=== PATIENT | male | born 1940 | race Caucasian/White ===

== ENCOUNTER → 2017-08-23 | Outpatient (CLI) | payer MEDICARE, BC | END | disposition home or self-care (01) | LOC: LABPAT 10:53 | PROVIDERS: ATTEND Orthopaedic Surgery | DX: Z01.812 Encounter for preprocedural laboratory examination (principal) | CPT/HCPCS: 87070 ==

== ENCOUNTER 2018-03-03 08:06 | Inpatient (IN) | payer MEDICARE, BC ==
--- NOTE | 2018-03-02 12:25 | HP ---
HISTORY AND PHYSICAL Surgery is scheduled for 03/03/2018. Martin Cornejo is a 77-year-old patient seen with progressive right knee pain. Treatment options were discussed with him. He elected to proceed with right total knee arthroplasty. Consent regarding procedure was obtained. Medical clearance was provided by Dr. Varela. PAST MEDICAL HISTORY: Hypertension, gastroesophageal reflux disease, depression. PAST SURGICAL HISTORY: Left total knee arthroplasty. DAILY MEDICATIONS: Amlodipine, hydralazine, hydrochlorothiazide, metoprolol, Paxil, Prilosec. ALLERGIES: None reported. SOCIAL HISTORY: Patient denies current tobacco use. PHYSICAL EXAMINATION: Evaluation of the right knee: His range of motion is -3 to 115 degrees. There is tenderness along the medial joint line. There is crepitance along the medial lateral and patellofemoral compartments with range of motion. There is pain with patellofemoral compression. Ligaments are stable. Hip rotation is without pain. Distal neurovascular exam is intact. RADIOGRAPHS: Radiographs of the right knee reveal severe medial and moderate patellofemoral compartment osteoarthritis. IMPRESSION: 1. Right knee osteoarthritis. 2. Hypertension. 3. Gastroesophageal reflux disease. 4. Depression. PLAN: Right total knee arthroplasty. MMODL / IJN: [id number] /
[~2018-03-03 08:06] MED LIST: ACETAMINOPHEN TAB 500 MG TAB PO ONE; DEXAMETHASONE SOD PHOSPHATE 10 MG/ML 1 ML VIAL IV ONE; MELOXICAM 7.5 MG TAB PO ONE; MIDAZOLAM 2 MG/2 ML VIAL IV PRN; MORPHINE SULFATE 4 MG/0.8 ML SYRINGE (INJ) IV PRN; ONDANSETRON ODT 4 MG TAB PO ONE; TRANEXAMIC ACID 1,000 MG in SODIUM CHLORIDE 0.9% 50 ML IVPB ONE
[2018-03-03] MEDS ORDERED: ONDANSETRON 4 MG/2 ML VIAL ONE (08:25)
[2018-03-03] MEDS: LACTATED RINGERS 1,000 ML IV SCH (08:44)
[2018-03-03] MEDS ORDERED: ONDANSETRON 4 MG/2 ML VIAL IVP ONE (08:45)
[2018-03-03] MEDS ORDERED: fentaNYL (PF) 50 MCG/ML 2 ML AMP ONE (08:50)
[2018-03-03] MEDS ORDERED: ROPIVACAINE 1,100 MG, SODIUM CHLORIDE 0.9% 330 ML MISCELLANE PRN ×2 (09:37)
--- NOTE | 2018-03-03 09:37 | P.ONQ ---
Anesthesiology Proc Note - PNB - Peripheral Nerve Block Performed Right Adductor Canal Infusion Time Out Performed: Yes Procedure Start Time: : Procedure Stop Time: : Indication: Acute Post-Operative Pain, Requested by physician Sedation Type: Sedate with meaningful contact maintained Position: Supine Catheter: Indwelling Needle Types: On-Q Needle Size: 150mm (6") Needle Gauge: 20 Technique: Ultrasound Injectate: 0.5% Ropivacaine (see comment for volume) (30 mls) Blood Aspirated: No Pain Paresthesia on Injection Noted: No Resistance on Injection: Normal Events: Uneventful and Well Tolerated
[2018-03-03] MEDS ORDERED: PROPOFOL 10 MG/ML 20 ML VIAL IV ONE (10:07)
[2018-03-03] MEDS ORDERED: TRANEXAMIC ACID 1,000 MG/10 ML VIAL ONE (10:07)
[2018-03-03] MEDS ORDERED: SODIUM CHLORIDE 0.9% 100 ML BAG ONE (10:07)
[2018-03-03] MEDS ORDERED: MIDAZOLAM 2 MG/2 ML VIAL ONE (10:07)
[2018-03-03] MEDS ORDERED: ceFAZolin 3,000 MG in SODIUM CHLORIDE 0.9% IRRIGATIO 3,000 ML IRRIGATION ONE (10:12)
[2018-03-03] MEDS: ceFAZolin IN SWFI 2 GM/20 ML SYRINGE IVP ONE ×2 (10:19→10:30)
[2018-03-03] MEDS ORDERED: ROPIVACAINE 246.25 MG, EPINEPHrine 0.5 MG, KETOROLAC 30 MG, cloNIDine HCL/PF 80 MCG, WA... MISCELLANE ONE ×5 (10:23)
[2018-03-03] MEDS ORDERED: LACTATED RINGERS 1,000 ML IV ONE (11:07)
[2018-03-03] MEDS ORDERED: hydrOXYzine PAMOATE 25 MG CAP PO PRN (12:36)
[2018-03-03] MEDS ORDERED: HYDROcodone/APAP 7.5-325MG 1 EACH TAB PO PRN ×2 (12:36)
[2018-03-03] MEDS ORDERED: MORPHINE SULFATE 4 MG/ML SYRINGE IVP PRN ×3 (12:36)
[2018-03-03] MEDS ORDERED: NALOXONE 0.4 MG/ML 1 ML VIAL IV PRN (12:36)
[2018-03-03] MEDS ORDERED: ONDANSETRON 4 MG/2 ML VIAL IVP PRN (12:36)
--- NOTE | 2018-03-03 12:36 | P.OP ---
Date of Procedure: 03/03/18 Preoperative Diagnosis: Right knee osteoarthritis Postoperative Diagnosis: Right knee osteoarthritis Procedure(s) Performed: Right total knee arthroplasty Implants: 1. Celina persona size 9 right cruciate retaining cemented femur 2. Celina persona size G right cemented tibial tray 3. Celina persona 18 mm medial congruent polyethylene tibial insert 4. Celina persona 41 mm all polyethylene cemented patella Anesthesia: regional (Abductor canal block), local, spinal Surgeon: Deonte Rich Estimated Blood Loss (ml): 80 Pathology: other (Bone) Condition: stable Disposition: PACU Indications for Procedure: 77-year-old patient seen with symptomatic right knee osteoarthritis. After treatment options were discussed, he elected to proceed with total knee arthroplasty. Operative Findings: See description of procedure Description of Procedure: Patient was taken to the operative suite after having an adductor canal catheter placed by the department of anesthesia. Patient underwent a spinal anesthetic by the department of anesthesia. Patient was given preoperative IV intake antibiotics and TXA. A well-padded tourniquet was placed about the [] lower extremity. The lower extremity was then prepped and draped in the normal sterile orthopedic fashion. The extremity was elevated, a tourniquet was insufflated to 350. A standard anterior incision was made sharply through skin. Dissection was taken down through the subcutaneous soft tissues down to the extensor mechanism. A medial arthrotomy was performed, patella was everted and knee was flexed. There was advanced osteoarthritis noted. A proximal tibial cutting guide was positioned. Proximal tibial cut was made. A distal intramedullary femoral cutting guide was positioned, distal femoral cut made. We placed the appropriate sizing guide and selected the appropriate size. A distal 4-in-1 femoral cutting block was positioned, distal femoral cuts were made. We now placed a trial femoral component into position, along with an appropriate size tibial tray and insert. We now took the knee through range of motion and had full extension good flexion and good overall soft tissue balance noted. The patella was everted and a flush cut made with patellar quad tendon. We templated the patella, appropriate drill holes were made. An appropriate trial patella was positioned, knee was taken through full range of motion with the patella tracking very nicely. The trial patella was removed. Drill holes were made through the femoral component. All trial components were removed after marking off the appropriate rotation of the tibia. Retractors were now positioned along the proximal tibia. An appropriate keel punch was made with the appropriate size tibial guide. At this point appropriate size implants were chosen and opened. The joint was irrigated copiously with pulse lavage mechanical irrigation. The posterior capsule was infiltrated with local analgesic. We mixed antibiotic methylmethacrylate. Once the methyl methacrylate was ready, the tibial component was cemented into place removing any excess methylmethacrylate. The femoral component was cemented into place removing the removing any excess methylmethacrylate. We then inserted the appropriate size polyethylene tibial insert. We made sure that it was locked into position. We took the knee into full extension, and then back in a flexion making sure we had removed any excess methylmethacrylate. The patellar component was then cemented down and secured with clamp. Excess methylmethacrylate removed. We kept the knee in full extension, patellar clamp in position until methylmethacrylate had hardened. Once it had hardened the patellar clamp was removed. The knee was taken through full range of motion. The patella tracked nicely. There was good soft tissue balancing. The tourniquet was now released. Additional hemostasis was achieved via electrocautery. A second gram of TXA was given. The wound was irrigated with pulse lavage mechanical irrigation. The superficial soft tissues were infiltrated local analgesic. The extensor mechanism was repaired with Vicryl. We checked the repair with range of motion and it was stable. The subcutaneous soft tissues were repaired with Vicryl in layers. The skin was approximated with pernio/Dermabond. Sterile dressings were applied followed by loose web roll and [place] bandage. The patient was transferred to a bed, and taken to recovery in stable and satisfactory condition.
--- NOTE | 2018-03-03 12:58 | XR ---
EXAMINATION TYPE: XR knee limited RT DATE OF EXAM: 03/03/2018 CLINICAL HISTORY: Right knee pain and arthritis status post total knee replacement. TECHNIQUE: Portable AP and crosstable lateral views of the right knee are obtained immediately posto peratively. COMPARISON: None FINDINGS: Metallic hardware from total right knee arthroplasty is seen and appears satisfactory in a lignment and position. There is evidence of recent surgery with diffuse subcutaneous gas , vertical skin rosaline, and percutaneous suprapatellar surgical drain noted. IMPRESSION: METALLIC HARDWARE FROM TOTAL RIGHT KNEE ARTHROPLASTY IS SATISFACTORY IN ALIGNMENT.
[2018-03-03] MEDS: traMADol 50 MG TAB PO SCH ×3 (13:46→20:39)
[2018-03-03] MEDS: SODIUM CHLORIDE 0.9% 1,000 ML IV SCH (18:26)
[2018-03-03] MEDS: ceFAZolin IN SWFI 2 GM/20 ML SYRINGE IVP SCH (18:26)
[2018-03-03] MEDS: ENOXAPARIN 30 MG/0.3 ML SYRINGE SQ SCH (20:41)
[2018-03-03] MEDS ORDERED: SENNOSIDES-DOCUSATE SODIUM 1 EACH TAB PO SCH (21:00)
[2018-03-04] MEDS: ceFAZolin IN SWFI 2 GM/20 ML SYRINGE IVP SCH (01:00)
[2018-03-04 01:57] VITALS: RESP 14
[2018-03-04] MEDS: ENOXAPARIN 30 MG/0.3 ML SYRINGE SQ SCH (07:03)
[2018-03-04] MEDS: traMADol 50 MG TAB PO SCH ×2 (07:05→12:33)
[2018-03-04 07:08] VITALS: BP 136/76; PULSE 59; TEMP 98
[2018-03-04] MEDS: LACTATED RINGERS 1,000 ML IV SCH (07:31)
[2018-03-04 07:33] LABS: Basophils % (A) 0 %; Eosinophils # (A) 0.1 k/uL (0-0.7); Eosinophils % (A) 0 %; HCT 39.1 % (39.0-53.0); HGB 12.8 gm/dL (13.0-17.5); Lymphocytes # (A) 2.6 k/uL (1.0-4.8); Lymphocytes % (A) 14 %; MCH 29.3 pg (25.0-35.0); MCHC 32.8 g/dL (31.0-37.0); MCV 89.3 fL (80.0-100.0); Mean Platelet Volume 7.4; Monocytes # (A) 1.3 k/uL (0-1.0); Monocytes % (A) 7 %; Neutrophils # (A) 14.5 k/uL (1.3-7.7); Neutrophils % (A) 77 %; Platelet Count 233 k/uL (150-450); RBC 4.37 m/uL (4.30-5.90); RDW 14.3 % (11.5-15.5); WBC 18.7 k/uL (3.8-10.6)
[2018-03-04] MEDS ORDERED: PANTOPRAZOLE 40 MG TABLET PO SCH (07:45)
[2018-03-04] MEDS ORDERED: FAMOTIDINE 20 MG TAB PO SCH (09:00)
[2018-03-04] MEDS ORDERED: MELOXICAM 7.5 MG TAB PO SCH (09:00)
[2018-03-04] MEDS ORDERED: METOPROLOL SUCCINATE (ER) 100 MG TAB.ER.24H PO SCH (09:00)
[2018-03-04] MEDS ORDERED: PARoxetine 20 MG TAB PO SCH (09:00)
[2018-03-04] MEDS ORDERED: amLODIPine 5 MG TAB PO SCH (09:00)
[2018-03-04] MEDS ORDERED: hydrALAZINE HCL 25 MG TAB PO SCH (09:00)
[2018-03-04] MEDS: SODIUM CHLORIDE 0.9% 1,000 ML IV SCH (09:57)
--- NOTE | 2018-03-04 11:12 | P.PN ---
Subjective Progress Note Date: 03/04/18 Principal diagnosis: Status post right total knee arthroplasty Patient seen today resting in his hospital bed, he is utilizing the CPM. His pain is well-controlled. He is ambulating well with physical therapy. He denies any headaches, lightheadedness, chest pain or shortness of breath. Objective - Vital Signs Vital signs: Vital Signs Temp 98.0 F 03/04/18 07:07 Pulse 59 L 03/04/18 07:07 Resp 14 03/04/18 01:54 BP 136/76 03/04/18 07:07 Pulse Ox 98 03/04/18 07:07 Intake & Output 03/03/18 03/04/18 03/04/18 18:59 06:59 18:59 Intake Total 1351 525 240 Output Total 80 Balance 1271 525 240 Intake: IV 1351 525 Sodium Chloride 0.9% 1, 250 525 000 ml @ 50 mls/hr IV . Q20H ANGY Rx#:[id number] Oral 240 Output: Estimated Blood Loss 80 Other: Voiding Method Toilet Toilet # Voids 1 - Exam Right lower extremity: Incision is clean, dry, and intact. The prineo tape is in good condition. There is minimal soft tissue swelling and ecchymosis surrounding the medial and lateral aspects of the incision. Calf is soft, no tenderness with palpation. Plantar flexion, dorsiflexion, EHL, FHL are intact. Sensory exam to light touch throughout the extremity is intact, dorsal pedis pulses 2+. - Labs CBC & Chem 7: 03/04/18 07:07 Labs: Abnormal Lab Results - Last 24 Hours (Table) 03/04/18 Range/Units 07:07 WBC 18.7 H (3.8-10.6) k/uL Hgb 12.8 L (13.0-17.5) gm/dL Neutrophils # 14.5 H (1.3-7.7) k/uL Monocytes # 1.3 H (0-1.0) k/uL Assessment and Plan Plan: Assessment: 1. Postop day #1 status post right total knee arthroplasty Plan: 1. Pain control, continue use of oral medication 2. GI and DVT prophylaxis, continue Lovenox during inpatient stay. He will be discharged home on aspirin 325 mg twice a day 3. Wound care instructions were discussed 4. Continue use of CPM and physical therapy 5. Medical recommendations 6. Discharge planning: Patient likely be discharged home today Time with Patient: Less than 30
[2018-03-04] MEDS ORDERED: MULTIVITAMINS, THERA 1 EACH TAB PO SCH (12:00)
--- NOTE | 2018-03-04 13:51 | P.DS ---
Providers Date of admission: 03/03/18 08:06 Expected date of discharge: 03/04/18 Attending physician: Deonte Rich Consults: 03/03/18 12:36 Consult Physician Routine Consulting Provider: Remigio Varela Consult Reason/Comments: Medical management Do you want consulting provider notified?: Yes Primary care physician: Remigio Varela Hospital Course: Date of admission: 03/03/2018 Date of discharge: 03/04/2018 Admission diagnosis: Status post right total knee arthroplasty Discharge diagnosis: Same Attending physician: Dr. Rich Surgical procedures: Right total knee arthroplasty Brief history: Patient is a 77-year-old male with a history of progressive primary right knee osteoarthritis. At this point patient has failed conservative treatment measures and has opted to proceed with a elective right total knee arthroplasty. Hospital course: Details of patient's surgery can be found in operative report. Patient tolerated the procedure well and was subsequently transported to orthopedic floor. Patient's orthopeidc and medical care was provided daily. Patient had daily laboratory tests performed for evaluation of overall blood counts. Patient had daily physical therapy to include strengthening range of motion as well as education with walker ambulation. Patient had daily CPM usage as part of their physical therapy program. Patient was treated with Lovenox for their postoperative DVT prophylaxis during their inpatient stay. Patient was noted to have a relatively uneventful postoperative course. Patient reported satisfactory pain control with oral pain medications by postoperative day 0. Patient showed satisfactory progress with physical therapy. Patient moved steadily through the program and had no difficulty meeting the goals by postoperative day 1 . Given patient's otherwise satisfactory course and having met physical therapy goals, plan is to discharge patient home on postoperative day 1 . Discharge condition/disposition: Patient will be discharged home in stable condition. Discharge medications: Instructions are given on resumption of patient's normal daily medications per primary care recommendation, in addition patient will be prescribed Colace 100 mg, aspirin 325 mg. Discharge instructions: 1. Wound care and infection precautions, keep incision dry and covered while showering, no lotions, creams, moisturizers. No soaking, tubs, pools, hottubs. Do not scrub over the incision. 2. Weight-bear as tolerated with walker / cane until follow-up. 3. Ice and elevate when necessary. Do not exceed 20 minutes per hour with ice pack. 4. Utilize compression sleeve until seen at first follow up appointment. 5. Visiting nursing care. 6. Home physical therapy including home CPM. 7. Pain meds and anticoagulants per prescription. 8. Pain medication has potential to cause constipation. Increase oral fluid and fiber intake. Contact primary care provider if you have not had a bowel movement within 48 hours after discharge 9. No anti-inflammatory medication until discussed at first post operative visit, this including Motrin, Aleve, Mobic, Diclofenac. 10. Follow up in office at 2 weeks postop with Manuel Goldman PA-C 11. Follow up with your primary care doctor 7-10 days after discharge. 12. Contact [facility] with any questions, . Procedures: Right total knee arthroplasty Patient Condition at Discharge: Good Plan - Discharge Summary Discharge Rx Participant: Yes New Discharge Prescriptions: New Aspirin 325 mg PO BID #60 tab Docusate [Colace] 100 mg PO DAILY #30 capsule Discontinued Aspirin 325 mg PO BID #60 tab No Action amLODIPine [Norvasc] 5 mg PO QAM PARoxetine [Paxil] 20 mg PO BID Metoprolol Succinate (ER) [Toprol Xl] 100 mg PO BID hydrALAZINE HCL [Apresoline] 25 mg PO BID Omeprazole 20 mg PO QAM traMADol HCl [Ultram] 50 mg PO Q6H PRN #40 tab PRN Reason: Pain Multivitamins, Thera [Multivitamin (formulary)] 1 tab PO DAILY Discharge Medication List Metoprolol Succinate (ER) [Toprol Xl] 100 mg PO BID 10/03/17 [History] Omeprazole 20 mg PO QAM 10/03/17 [History] PARoxetine [Paxil] 20 mg PO BID 10/03/17 [History] amLODIPine [Norvasc] 5 mg PO QAM 10/03/17 [History] hydrALAZINE HCL [Apresoline] 25 mg PO BID 10/03/17 [History] traMADol HCl [Ultram] 50 mg PO Q6H PRN #40 tab 10/08/17 [Rx] Multivitamins, Thera [Multivitamin (formulary)] 1 tab PO DAILY 02/26/18 [History ] Aspirin 325 mg PO BID #60 tab 03/04/18 [Rx] Docusate [Colace] 100 mg PO DAILY #30 capsule 03/04/18 [Rx] Follow up Appointment(s)/Referral(s): Remigio Varela MD [Primary Care Provider] - 1 Week [facility], [NON-STAFF] - Jeronimo Goldman PAC [PHYSICIAN [employer]CH[employer]] - 2 Weeks Patient Instructions/Handouts: *Surgery [facility] - On-Q Pain Pump Discharge Instructions, Knee Replacement (DC) Activity/Diet/Wound Care/Special Instructions: Orthopedic Discharge Instructions: 1. Wound care and infection precautions, keep incision dry and covered while showering, no lotions, creams, moisturizers. No soaking, pools, hot tubs. Do not scrub over incision. 2. Weight-bear as tolerated with walker / cane until follow-up. 3. Ice and elevate when necessary. Do not exceed 20 minutes per hour with ice pack. 4. Utilize compression sleeve until seen at first follow up appointment. 5. Visiting nursing care. 6. Home physical therapy including home CPM. 7. Pain meds and anticoagulants per prescription. 8. Pain medication has potential to cause constipation. Increase oral fluid and fiber intake. Contact primary care provider if you have not had a bowel movement within 48 hours after discharge. 9. No anti-inflammatory medication until discussed at first post operative visit, this including Motrin, Aleve, Mobic, Diclofenac. 10. Follow up in office at 2 weeks postop with Manuel Goldman PA-C 11. Follow up with your primary care doctor 7-10 days after discharge. 12. Contact [facility] with any questions, . Discharge Disposition: HOME WITH HOME HEALTH SERVICES
== END 2018-03-04 15:49 | disposition home health service (06) | DRG 470 ==
LOC: 2ORMAIN 08:06 → 3SUR 12:28
PROVIDERS: ADMIT Orthopaedic Surgery; ATTEND Orthopaedic Surgery
PROC: 0SRC0J9 Replacement of Right Knee Joint with Synthetic Substitute, Cemented, Open Approach (ICD-10-PCS; principal; 2018-03-03 10:15)
DX: M17.11 Unilateral primary osteoarthritis, right knee (principal); F32.9 Major depressive disorder, single episode, unspecified; I10 Essential (primary) hypertension; K21.9 Gastro-esophageal reflux disease without esophagitis; Z96.652 Presence of left artificial knee joint; Z79.82 Long term (current) use of aspirin; Z79.899 Other long term (current) drug therapy
CPT/HCPCS: 85025; 88300

== ENCOUNTER 2020-01-01 10:43 | Emergency (ER) | payer MEDICARE, BC ==
[2020-01-01 10:51] VITALS: RESP 18; TEMP 99.1
[2020-01-01] MEDS ORDERED: SODIUM CHLORIDE 0.9% 1,000 ML IV STA (11:25)
--- NOTE | 2020-01-01 11:30 | ED ---
General Adult HPI - General Chief complaint: Syncope Stated complaint: Near syncope Time Seen by Provider: 01/01/20 10:57 Source: patient Mode of arrival: ambulatory Limitations: no limitations - History of Present Illness Initial comments: Dictation was produced using [employer] dictation software. please excuse any grammatical, word or spelling errors. Chief Complaint: 79-year-old male past medical history of hypertension and depression and anxiety presents with presyncope History of Present Illness: Is a 79-year-old male. He states that approximately 2 hours prior to arrival he stood up abruptly to go to the restroom. On his way to the bathroom he felt a little lightheaded. States that he saw stars. Patient states that he had to hold himself up on the wall. Patient states his symptoms resolved after several seconds. He was able to go to the bathroom and use it. Patient states he had an episode like this actually 1 year ago. Patient has history of hypertension. Takes multiple antihypertensive medications. Patient feels well at this time. States he feels mildly anxious but he has a history of anxiety. The ROS documented in this emergency department record has been reviewed and confirmed by me. Those systems with pertinent positive or negative responses have been documented in the HPI. All other systems are other negative and/or noncontributory. PHYSICAL EXAM: General Impression: Alert and oriented x3, not in acute distress HEENT: Normocephalic atraumatic, extra-ocular movements intact, pupils equal and reactive to light bilaterally, mucous membranes moist. Cardiovascular: Heart regular rate and rhythm, S1&S2 audible, no murmurs, rubs or gallops Chest: Lungs clear to auscultation bilaterally, no rhonchi, no wheeze, no rales Abdomen: Bowel sounds present, abdomen soft, non-tender, non-distended, no organomegaly Musculoskeletal: Pulses present and equal in all extremities, no peripheral edema Motor: no focal deficits noted Neurological: CN II-XII grossly intact, no focal motor or sensory deficits noted Skin: Intact with no visualized rashes Psych: Normal affect and mood ED course: 79 y Old male presents with clinical presentation consistent with presyncope as upon arrival are within acceptable limits. EKGs benign. His physical exam is normal Laboratory evaluation obtained. CBC metabolic panel is unremarkable. Orthostatic blood pressures are negative. Patient was in the emergency Department with no changes in status. He appears well on once to be discharge. Patient told to follow-up with his primary care physician. Return parameters discussed. EKG interpretation: Ventricular rate 68, normal sinus rhythm,. Interval 160, QRS 92, QTC 421. No PA prolongation, no QTC prolongation, no ST or T-wave changes noted. Overall, this EKG is unremarkable - Related Data Home Medications Medication Instructions Recorded Confirmed Metoprolol Succinate (ER) [Toprol 100 mg PO BID 10/03/17 03/03/18 Xl] Omeprazole 20 mg PO QAM 10/03/17 03/03/18 PARoxetine [Paxil] 20 mg PO BID 10/03/17 03/03/18 amLODIPine [Norvasc] 5 mg PO QAM 10/03/17 03/03/18 hydrALAZINE HCL [Apresoline] 25 mg PO BID 10/03/17 03/03/18 Multivitamins, Thera [Multivitamin 1 tab PO DAILY 02/26/18 03/03/18 (formulary)] Previous Rx's Medication Instructions Recorded traMADol HCl [Ultram] 50 mg PO Q6H PRN #40 tab 10/08/17 Aspirin 325 mg PO BID #60 tab 03/04/18 Docusate [Colace] 100 mg PO DAILY #30 capsule 03/04/18 Allergies Allergy/AdvReac Type Severity Reaction Status Date / Time No Known Allergies Allergy Verified 01/01/20 10:51 Review of Systems ROS Statement: Those systems with pertinent positive or pertinent negative responses have been documented in the HPI. ROS Other: All systems not noted in ROS Statement are negative. 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, 4th finger tip amputated, jesus cataract sx, Past Anesthesia/Blood Transfusion Reactions: No Reported Reaction Past Psychological History: Anxiety Smoking Status: Former smoker Past Alcohol Use History: Occasional Past Drug Use History: None Reported - Past Family History Father Family Medical History: Cancer Additional Family Medical History / Comment(s): esophagus General Exam Limitations: no limitations Course Vital Signs 01/01/20 01/01/20 01/01/20 10:47 11:34 11:43 Temperature 99.1 F Pulse Rate 69 67 Pulse Rate [ 70 Left Standing Range Manager ] Respiratory 18 18 Rate Blood Pressure 162/93 162/93 Blood Pressure 152/90 [Left Arm Standing] O2 Sat by Pulse 98 96 Oximetry 01/01/20 11:59 Temperature Pulse Rate 64 Pulse Rate [ Left Standing Range Manager ] Respiratory 18 Rate Blood Pressure 146/85 Blood Pressure [Left Arm Standing] O2 Sat by Pulse 96 Oximetry Medical Decision Making - Lab Data Result diagrams: 01/01/20 11:50 01/01/20 10:55 Lab Results 01/01/20 01/01/20 Range/Units 10:55 11:50 WBC 5.5 (3.8-10.6) k/uL RBC 4.85 (4.30-5.90) m/uL Hgb 15.0 (13.0-17.5) gm/dL Hct 44.9 (39.0-53.0) % MCV 92.5 (80.0-100.0) fL MCH 30.9 (25.0-35.0) pg MCHC 33.5 (31.0-37.0) g/dL RDW 13.5 (11.5-15.5) % Plt Count 215 (150-450) k/uL Neutrophils % 49 % Lymphocytes % 33 % Monocytes % 9 % Eosinophils % 6 % Basophils % 1 % Neutrophils # 2.7 (1.3-7.7) k/uL Lymphocytes # 1.8 (1.0-4.8) k/uL Monocytes # 0.5 (0-1.0) k/uL Eosinophils # 0.3 (0-0.7) k/uL Basophils # 0.0 (0-0.2) k/uL Sodium 136 L (137-145) mmol/L Potassium 5.1 (3.5-5.1) mmol/L Chloride 101 (98-107) mmol/L Carbon Dioxide 26 (22-30) mmol/L Anion Gap 9 mmol/L BUN 17 (9-20) mg/dL Creatinine 0.93 (0.66-1.25) mg/dL Est GFR (CKD-EPI)AfAm >90 (>60 ml/min/1.73 sqM) Est GFR (CKD-EPI)NonAf 79 (>60 ml/min/1.73 sqM) Glucose 109 H (74-99) mg/dL Calcium 9.0 (8.4-10.2) mg/dL Magnesium 2.0 (1.6-2.3) mg/dL Disposition Clinical Impression: Dizziness Disposition: HOME SELF-CARE Condition: Good Instructions (If sedation given, give patient instructions): Near Syncope (ED) Is patient prescribed a controlled substance at d/c from ED?: No Referrals: Remigio Varela MD [Primary Care Provider] - 1-2 days Time of Disposition: 12:28
[2020-01-01 11:58] LABS: Basophils % (A) 1 %; Eosinophils # (A) 0.3 k/uL (0-0.7); Eosinophils % (A) 6 %; HCT 44.9 % (39.0-53.0); Lymphocytes # (A) 1.8 k/uL (1.0-4.8); Lymphocytes % (A) 33 %; MCH 30.9 pg (25.0-35.0); MCHC 33.5 g/dL (31.0-37.0); MCV 92.5 fL (80.0-100.0); Mean Platelet Volume 7.8; Monocytes # (A) 0.5 k/uL (0-1.0); Monocytes % (A) 9 %; Neutrophils # (A) 2.7 k/uL (1.3-7.7); Neutrophils % (A) 49 %; Platelet Count 215 k/uL (150-450); RBC 4.85 m/uL (4.30-5.90); RDW 13.5 % (11.5-15.5); WBC 5.5 k/uL (3.8-10.6)
[2020-01-01 11:58] LABS: African American GFR (CKD) >90 (>60 ml/min/1.73 sqM); Anion Gap 9 mmol/L; Blood Urea Nitrogen 17 mg/dL (9-20); Carbon Dioxide 26 mmol/L (22-30); Chloride 101 mmol/L (98-107); Glucose 109 mg/dL (74-99); Non-African American GFR(CKD) 79 (>60 ml/min/1.73 sqM); Potassium 5.1 mmol/L (3.5-5.1); Sodium 136 mmol/L (137-145)
[2020-01-01 12:00] VITALS: BP 146/85; PULSE 64
[2020-01-01] MEDS ORDERED: KETOROLAC 30 MG/ML 1 ML VIAL IVP STA (12:27)
== END 2020-01-01 13:00 | disposition home or self-care (01) ==
LOC: EC 10:43
DX: R42 Dizziness and giddiness (principal); I10 Essential (primary) hypertension; F41.9 Anxiety disorder, unspecified; Z87.891 Personal history of nicotine dependence; Z79.899 Other long term (current) drug therapy
CPT/HCPCS: 36415; 93005; 80048; 83735; 85025; 99284; 96374; 96361; J1885

== ENCOUNTER 2021-11-04 10:15 | Inpatient (IN) | payer MEDICARE, BC ==
[2021-11-04] MEDS ORDERED: SODIUM CHLORIDE 0.9% 1,000 ML IV STA (11:01)
--- NOTE | 2021-11-04 11:06 | ED ---
SOB HPI - General Chief Complaint: Shortness of Breath Stated Complaint: SOB,Cough,Body Aches Time Seen by Provider: 11/04/21 10:42 Source: patient, RN notes reviewed Mode of arrival: ambulatory Limitations: no limitations - History of Present Illness Initial Comments: This is a 81-year-old male with no prior history of heart or lung disease who states he had the onset day of breath body aches slight cough this is after exposure somewhat COVID-19 the prior evening. No chest pain reported decreased appetite reported he has exertional dyspnea but at rest he feels okay with respect to breathing. Modifying factors at this time MD Complaint: shortness of breath, cough - Related Data Home Medications Medication Instructions Recorded Confirmed Metoprolol Succinate (ER) [Toprol 100 mg PO BID 10/03/17 11/04/21 Xl] Omeprazole 20 mg PO DAILY 10/03/17 11/04/21 PARoxetine [Paxil] 20 mg PO BID 10/03/17 11/04/21 hydrALAZINE HCL [Apresoline] 25 mg PO BID 10/03/17 11/04/21 Aspirin EC [Ecotrin Low Dose] 81 mg PO DAILY 11/04/21 11/04/21 Cetirizine HCl [Zyrtec] 10 mg PO DAILY 11/04/21 11/04/21 Flaxseed Oil 1,000 mg PO DAILY 11/04/21 11/04/21 Levothyroxine Sodium [Synthroid] 25 mcg PO DAILY 11/04/21 11/04/21 Tamsulosin [Flomax] 0.4 mg PO HS 11/04/21 11/04/21 Allergies Allergy/AdvReac Type Severity Reaction Status Date / Time No Known Allergies Allergy Verified 11/04/21 11:50 Review of Systems ROS Statement: Those systems with pertinent positive or pertinent negative responses have been documented in the HPI. ROS Other: All systems not noted in ROS Statement are negative. 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, 4th finger tip amputated, jesus cataract sx, Past Anesthesia/Blood Transfusion Reactions: No Reported Reaction Past Psychological History: Anxiety Smoking Status: Never smoker Past Alcohol Use History: Occasional Past Drug Use History: None Reported - Past Family History Father Family Medical History: Cancer Additional Family Medical History / Comment(s): esophagus General Exam - General Exam Comments Initial Comments: This is a well-developed well-nourished awake alert oriented 3 male Limitations: no limitations General appearance: alert, in no apparent distress Head exam: Present: atraumatic, normocephalic, normal inspection Eye exam: Present: normal appearance, PERRL, EOMI. Absent: scleral icterus, conjunctival injection, periorbital swelling ENT exam: Present: mucous membranes dry Neck exam: Present: normal inspection, full ROM, other (No stridor Austin bruits). Absent: tenderness, meningismus, lymphadenopathy Respiratory exam: Present: decreased breath sounds. Absent: respiratory distress, wheezes, rales, rhonchi, stridor Cardiovascular Exam: Present: regular rate, normal rhythm, normal heart sounds. Absent: systolic murmur, diastolic murmur, rubs, gallop, clicks GI/Abdominal exam: Present: soft, normal bowel sounds. Absent: distended, tenderness, guarding, rebound, rigid Extremities exam: Present: normal inspection, full ROM, normal capillary refill. Absent: tenderness, pedal edema, joint swelling, calf tenderness Back exam: Present: normal inspection Neurological exam: Present: alert, oriented X3, CN II-XII intact Psychiatric exam: Present: normal affect, normal mood Skin exam: Present: warm, dry, intact, normal color. Absent: rash Course Vital Signs 11/04/21 11/04/21 11/04/21 10:32 13:43 14:10 Temperature 102.2 F H 100.0 F H Pulse Rate 85 89 Respiratory 18 20 19 Rate Blood Pressure 167/87 160/97 O2 Sat by Pulse 92 L 94 L Oximetry Medical Decision Making - Medical Decision Making I did discuss the case with Dr. Knapp covering Dr. Varela patient will be admitted inpatient evaluation and treatment of pneumonia the initial COVID-19 test was negative - Lab Data Result diagrams: 11/04/21 11:04 11/04/21 11:04 Lab Results 11/04/21 11/04/21 11/04/21 Range/Units 11:04 11:04 11:04 WBC 14.3 H (3.8-10.6) k/uL RBC 4.80 (4.30-5.90) m/uL Hgb 14.9 (13.0-17.5) gm/dL Hct 44.8 (39.0-53.0) % MCV 93.4 (80.0-100.0) fL MCH 31.1 (25.0-35.0) pg MCHC 33.3 (31.0-37.0) g/dL RDW 13.5 (11.5-15.5) % Plt Count 215 (150-450) k/uL MPV 7.7 Neutrophils % 74 % Lymphocytes % 13 % Monocytes % 8 % Eosinophils % 3 % Basophils % 0 % Neutrophils # 10.6 H (1.3-7.7) k/uL Lymphocytes # 1.8 (1.0-4.8) k/uL Monocytes # 1.2 H (0-1.0) k/uL Eosinophils # 0.4 (0-0.7) k/uL Basophils # 0.1 (0-0.2) k/uL PT 10.5 (9.0-12.0) sec INR 1.0 (<1.2) APTT 27.0 (22.0-30.0) sec D-Dimer 0.38 (<0.60) mg/L FEU Sodium 133 L (137-145) mmol/L Potassium 4.7 (3.5-5.1) mmol/L Chloride 97 L (98-107) mmol/L Carbon Dioxide 29 (22-30) mmol/L Anion Gap 7 mmol/L BUN 15 (9-20) mg/dL Creatinine 1.05 (0.66-1.25) mg/dL Est GFR (CKD-EPI)AfAm 78 (>60 ml/min/1.73 sqM) Est GFR (CKD-EPI)NonAf 67 (>60 ml/min/1.73 sqM) Glucose 133 H (74-99) mg/dL Plasma Lactic Acid Murray (0.7-2.0) mmol/L Calcium 8.8 (8.4-10.2) mg/dL Magnesium 1.9 (1.6-2.3) mg/dL Total Bilirubin 1.0 (0.2-1.3) mg/dL AST 25 (17-59) U/L ALT 21 (4-49) U/L Alkaline Phosphatase 72 (38-126) U/L Troponin I (0.000-0.034) ng/mL NT-Pro-B Natriuret Pep pg/mL Total Protein 6.9 (6.3-8.2) g/dL Albumin 3.8 (3.5-5.0) g/dL Influenza Type A (PCR) (Not Detectd) Influenza Type B (PCR) (Not Detectd) RSV (PCR) (Not Detectd) SARS-CoV-2 (PCR) (Not Detectd) 11/04/21 11/04/21 11/04/21 Range/Units 11:04 11:04 11:04 WBC (3.8-10.6) k/uL RBC (4.30-5.90) m/uL Hgb (13.0-17.5) gm/dL Hct (39.0-53.0) % MCV (80.0-100.0) fL MCH (25.0-35.0) pg MCHC (31.0-37.0) g/dL RDW (11.5-15.5) % Plt Count (150-450) k/uL MPV Neutrophils % % Lymphocytes % % Monocytes % % Eosinophils % % Basophils % % Neutrophils # (1.3-7.7) k/uL Lymphocytes # (1.0-4.8) k/uL Monocytes # (0-1.0) k/uL Eosinophils # (0-0.7) k/uL Basophils # (0-0.2) k/uL PT (9.0-12.0) sec INR (<1.2) APTT (22.0-30.0) sec D-Dimer (<0.60) mg/L FEU Sodium (137-145) mmol/L Potassium (3.5-5.1) mmol/L Chloride (98-107) mmol/L Carbon Dioxide (22-30) mmol/L Anion Gap mmol/L BUN (9-20) mg/dL Creatinine (0.66-1.25) mg/dL Est GFR (CKD-EPI)AfAm (>60 ml/min/1.73 sqM) Est GFR (CKD-EPI)NonAf (>60 ml/min/1.73 sqM) Glucose (74-99) mg/dL Plasma Lactic Acid Murray 1.0 (0.7-2.0) mmol/L Calcium (8.4-10.2) mg/dL Magnesium (1.6-2.3) mg/dL Total Bilirubin (0.2-1.3) mg/dL AST (17-59) U/L ALT (4-49) U/L Alkaline Phosphatase (38-126) U/L Troponin I <0.012 (0.000-0.034) ng/mL NT-Pro-B Natriuret Pep 602 pg/mL Total Protein (6.3-8.2) g/dL Albumin (3.5-5.0) g/dL Influenza Type A (PCR) (Not Detectd) Influenza Type B (PCR) (Not Detectd) RSV (PCR) (Not Detectd) SARS-CoV-2 (PCR) (Not Detectd) 11/04/21 Range/Units 11:04 WBC (3.8-10.6) k/uL RBC (4.30-5.90) m/uL Hgb (13.0-17.5) gm/dL Hct (39.0-53.0) % MCV (80.0-100.0) fL MCH (25.0-35.0) pg MCHC (31.0-37.0) g/dL RDW (11.5-15.5) % Plt Count (150-450) k/uL MPV Neutrophils % % Lymphocytes % % Monocytes % % Eosinophils % % Basophils % % Neutrophils # (1.3-7.7) k/uL Lymphocytes # (1.0-4.8) k/uL Monocytes # (0-1.0) k/uL Eosinophils # (0-0.7) k/uL Basophils # (0-0.2) k/uL PT (9.0-12.0) sec INR (<1.2) APTT (22.0-30.0) sec D-Dimer (<0.60) mg/L FEU Sodium (137-145) mmol/L Potassium (3.5-5.1) mmol/L Chloride (98-107) mmol/L Carbon Dioxide (22-30) mmol/L Anion Gap mmol/L BUN (9-20) mg/dL Creatinine (0.66-1.25) mg/dL Est GFR (CKD-EPI)AfAm (>60 ml/min/1.73 sqM) Est GFR (CKD-EPI)NonAf (>60 ml/min/1.73 sqM) Glucose (74-99) mg/dL Plasma Lactic Acid Murray (0.7-2.0) mmol/L Calcium (8.4-10.2) mg/dL Magnesium (1.6-2.3) mg/dL Total Bilirubin (0.2-1.3) mg/dL AST (17-59) U/L ALT (4-49) U/L Alkaline Phosphatase (38-126) U/L Troponin I (0.000-0.034) ng/mL NT-Pro-B Natriuret Pep pg/mL Total Protein (6.3-8.2) g/dL Albumin (3.5-5.0) g/dL Influenza Type A (PCR) Not Detected (Not Detectd) Influenza Type B (PCR) Not Detected (Not Detectd) RSV (PCR) Not Detected (Not Detectd) SARS-CoV-2 (PCR) Not Detected (Not Detectd) - EKG Data -: EKG Interpreted by Me EKG shows normal: sinus rhythm EKG Comments: Sinus rhythm 84. Interval 158 QRS duration 92 QT since QTC 340/411 incomplete right bundle-branch block no acute ST-T wave changes - Radiology Data Radiology results: report reviewed (. Evidence of patchy infiltrate please see the complete report), image reviewed Disposition Clinical Impression: Pneumonia, Weakness, Febrile illness, acute Disposition: ADMITTED IP TO THIS HOSP Condition: Fair Referrals: Remigio Varela MD [Primary Care Provider] - 1-2 days
[2021-11-04 11:27] LABS: Basophils # (A) 0.1 k/uL (0-0.2); Basophils % (A) 0 %; Eosinophils # (A) 0.4 k/uL (0-0.7); Eosinophils % (A) 3 %; HCT 44.8 % (39.0-53.0); HGB 14.9 gm/dL (13.0-17.5); Lymphocytes # (A) 1.8 k/uL (1.0-4.8); Lymphocytes % (A) 13 %; MCH 31.1 pg (25.0-35.0); MCHC 33.3 g/dL (31.0-37.0); MCV 93.4 fL (80.0-100.0); Mean Platelet Volume 7.7; Monocytes # (A) 1.2 k/uL (0-1.0); Monocytes % (A) 8 %; Neutrophils # (A) 10.6 k/uL (1.3-7.7); Neutrophils % (A) 74 %; Platelet Count 215 k/uL (150-450); RDW 13.5 % (11.5-15.5); WBC 14.3 k/uL (3.8-10.6)
[2021-11-04 11:37] LABS: Albumin 3.8 g/dL (3.5-5.0); Calcium 8.8 mg/dL (8.4-10.2); Magnesium 1.9 mg/dL (1.6-2.3); Potassium 4.7 mmol/L (3.5-5.1); Total Protein 6.9 g/dL (6.3-8.2)
[2021-11-04 11:41] LABS: Prothrombin Time 10.5 sec (9.0-12.0)
--- NOTE | 2021-11-04 11:41 | XR ---
EXAMINATION TYPE: XR chest 2V DATE OF EXAM: 11/04/2021 11:12 AM COMPARISON:None CLINICAL INDICATION:Male, 81 years old with history of difficulty breathing; TECHNIQUE: Frontal and lateral views of the chest. FINDINGS: Lungs/Pleura: Scattered subtle reticular and hazy opacities. No evidence of pneumothorax, focal conso lidation or pleural effusion. Pulmonary vascularity: Unremarkable. Heart/mediastinum: Cardiomediastinal silhouette is unremarkable. Musculoskeletal: No acute osseous pathology. IMPRESSION: Subtle scattered opacities which may represent an atypical pneumonia. Correlate for covid 19.
[2021-11-04] MEDS ORDERED: cefTRIAXone IN SWFI 1,000 MG/10 ML SYRINGE IVP STA (14:03)
[2021-11-04] MEDS ORDERED: PNEUMONIA PROTOCOL UTILIZED 1 EACH MISC PO PRN (15:07)
[2021-11-04] MEDS ORDERED: AZITHROMYCIN 500 MG in SODIUM CHLORIDE 0.9% 250 ML IVPB STA (15:07)
[2021-11-04] MEDS: SODIUM CHLORIDE 0.9% 1,000 ML IV SCH (15:47)
--- NOTE | 2021-11-04 18:55 | HP ---
HISTORY AND PHYSICAL I am covering for Dr. Varela. DATE OF SERVICE: 11/04/2021. CHIEF COMPLAINTS: Shortness of breath and cough and body aches. HISTORY OF PRESENT ILLNESS: This 81-year-old gentleman with a past medical history of multiple medical problems including hypertension, DJD, being followed by Dr. Varela in the outpatient setting, not feeling well over the past couple days. The patient had significant shortness of breath, cough and body aches. The Covid 19 was negative. The patient had some exposure to Covid apparently. There is no history of fever, rigors or chills. Chest x- ray showed evidence of subtle opacities, which could be Covid 19 or regular pneumonia. The patient is admitted for evaluation and treatment. White count is elevated at 14.8. Patient is afebrile. There is no history of any headache, loss of consciousness, seizures. PAST MEDICAL HISTORY: History of hypertension. MEDICATIONS: Hydralazine. Flomax. Paxil. Omeprazole. Toprol-XL. Synthroid. Dosed and other medications reviewed. ALLERGIES: None. FAMILY HISTORY: History of esophageal cancer. SOCIAL HISTORY: Previous history of smoking. No history of alcohol intake. REVIEW OF SYSTEMS: ENT mentioned earlier. Diminished vision. Diminished hearing. CARDIOVASCULAR as mentioned earlier. RESPIRATORY: As mentioned earlier. GI no nausea or vomiting. : No dysuria. NERVOUS SYSTEM: No numbness or weakness. ALLERGY/IMMUNOLOGY: No asthma or hayfever. MUSCULOSKELETAL: As mentioned earlier. HEMATOLOGY/ONCOLOGY: No history of anemia. ENDOCRINE: No history of diabetes or hypothyroidism. CONSTITUTIONAL: As mentioned earlier. DERMATOLOGY: Negative. RHEUMATOLOGY: Negative. PSYCHIATRIC: As mentioned earlier. PHYSICAL EXAMINATION: The patient is alert and oriented times three. Pulse 89. Blood pressure 160/97, respiration 20, temperature 100.1, pulse ox 94% on room air. HEENT: Conjunctivae normal. Oral mucosa moist. NECK is no JVD. CARDIOVASCULAR system: S1, S2 muffled. RESPIRATION: Breath sounds diminished in the bases. A few scattered rhonchi and crackles. ABDOMEN: Soft, nontender. LEGS: No edema, no swelling. NERVOUS SYSTEM: Higher functions as mentioned. Moves all four limbs. No focal motor or sensory deficits. LYMPHATICS: No lymph nodes palpable in the neck, axillae or groin. SKIN: No ulcer. No rashes. No bleeding. JOINTS: No active deforming arthropathy. LAB STUDIES: WBC 14.3, sodium 130. Other labs are noted. Chest x-ray reviewed personally. ASSESSMENT: 1. Possible bilateral pneumonia, community-acquired versus viral pneumonia with continued fever. 2. Rule out Covid 19. 3. Increased WBC. 4. Hyponatremia. 5. Increased random glucose. RECOMMENDATION AND DISCUSSION: In this 81-year-old gentleman who presented with multiple complex medical issues, we will monitor the patient closely, continue the current medications, management and symptomatic treatment. We will initiate broad-spectrum IV antibiotics, Infectious Disease evaluation. Other than that, I would also recommend cultures and a D-dimer. If it is positive, CT angio of the chest. If the D-dimer is negative, I would recommend a CT scan of the chest also. Otherwise guarded prognosis because of multiple complex medical issues. Further recommendations to follow. A copy of this dictation is being forwarded to Dr. Varela, who is the primary physician. See orders for details. MMODL / IJN: [id number] /
[2021-11-04 19:17] LABS: C Reactive Protein 19.5 mg/dL (<1.0)
[2021-11-04] MEDS: METOPROLOL SUCCINATE (ER) 100 MG TAB.ER.24H PO SCH ×2 (21:51→22:59)
[2021-11-04] MEDS: PARoxetine 20 MG TAB PO SCH (21:51)
[2021-11-04] MEDS: hydrALAZINE HCL 25 MG TAB PO SCH (21:51)
[2021-11-04] MEDS: TAMSULOSIN 0.4 MG CAP.ER.24H PO SCH (21:51)
[2021-11-04 22:10] LABS: Appearance,Urine Clear (Clear); Bilirubin,Urine Negative (Negative); Blood,Urine Trace (Negative); Color,Urine Light Yellow; Glucose,Urine (UA) Negative (Negative); Ketones,Urine Negative (Negative); Leukocyte Esterase,Urine Negative (Negative); Nitrite,Urine Negative (Negative); Protein,Urine Trace (Negative); RBC,Urine <1 /hpf (0-5); Specific Gravity,Urine 1.004 (1.001-1.035); Urobilinogen,Urine <2.0 mg/dL (<2.0); WBC,Urine 2 /hpf (0-5)
[2021-11-05] MEDS: SODIUM CHLORIDE 0.9% 1,000 ML IV SCH ×2 (02:34→11:54)
[2021-11-05] MEDS: ASPIRIN 81 MG PO SCH (08:48)
[2021-11-05] MEDS: PANTOPRAZOLE 40 MG TABLET PO SCH (08:48)
[2021-11-05] MEDS: hydrALAZINE HCL 25 MG TAB PO SCH ×2 (08:48→20:30)
[2021-11-05] MEDS: LORATADINE 10 MG TAB PO SCH (08:48)
[2021-11-05] MEDS: PARoxetine 20 MG TAB PO SCH ×2 (08:48→20:30)
[2021-11-05] MEDS: METOPROLOL SUCCINATE (ER) 100 MG TAB.ER.24H PO SCH ×2 (08:49→21:21)
[2021-11-05] MEDS: AZITHROMYCIN 500 MG TAB PO SCH (08:49)
[2021-11-05] MEDS: LEVOTHYROXINE 25 MCG TAB PO SCH (08:52)
[2021-11-05] MEDS ORDERED: NON FORMULARY DRUG (Flaxseed Oil [Flaxseed Oil] 1,000 MG Capsule) PO SCH (09:00)
--- NOTE | 2021-11-05 09:33 | XR ---
EXAMINATION TYPE: XR chest 1V portable DATE OF EXAM: 11/05/2021 COMPARISON: 11/04/2021 INDICATION: Pneumonia TECHNIQUE: Single frontal view of the chest is obtained. FINDINGS: The heart size is normal. The pulmonary vasculature is normal. No focal consolidations are evident. Mild increased lung markings are not as apparent on the current exam. Some right infrahilar nodularity may be present. IMPRESSION: 1. Minimal increased lung markings not as well-visualized as previous. Some nodularity may be at the right infrahilar region. Follow-up is recommended.
[2021-11-05 10:37] LABS: Basophils # (A) 0.05 X 10*3/uL (0.00-0.10); Basophils % (A) 0.4 %; Eosinophils # (A) 0.42 X 10*3/uL (0.04-0.35); Eosinophils % (A) 3.6 %; HCT 41.6 % (39.6-50.0); HGB 13.7 g/dL (13.0-17.0); Lymphocytes # (A) 2.94 X 10*3/uL (0.90-5.00); Lymphocytes % (A) 25.3 %; MCH 30.6 pg (27.0-32.0); MCHC 32.9 g/dL (32.0-37.0); MCV 93.1 fL (80.0-97.0); Mean Platelet Volume 10.1 fL (9.5-12.2); Neutrophils # (A) 6.75 X 10*3/uL (1.80-7.70); Neutrophils % (A) 58.2 %; Platelet Count 233 X 10*3/uL (140-440); RBC 4.47 X 10*6/uL (4.40-5.60); RDW 13.5 % (11.5-14.5); WBC 11.62 X 10*3/uL (4.50-10.00)
[2021-11-05 11:30] LABS: African American GFR (CKD) 79.1 (60.0-200.0); BUN/Creat Ratio 9.49 Ratio (12.00-20.00); Blood Urea Nitrogen 9.8 mg/dL (9.0-27.0); Calcium 8.5 mg/dL (8.7-10.3); Carbon Dioxide 22.9 mmol/L (20.0-27.5); Non-African American GFR(CKD) 68.3 (60.0-200.0); Potassium 4.1 mmol/L (3.5-5.5)
--- NOTE | 2021-11-05 18:14 | PN ---
PROGRESS NOTE DATE OF SERVICE: 11/05/2021 I am covering for Dr. Varela. This 81-year-old gentleman was admitted with shortness of breath and as well as cough and body aches. Was thought to be bilateral pneumonia, community-acquired with possible viral pneumonia. The patient had some fever. The patient was given some empiric antibiotics. The patient is improving significantly. No chest pain. No palpitations. No fever. PHYSICAL EXAMINATION: Alert and oriented x3. Pulse 72, blood pressure I60/97, respiration 18, temperature 98.2, pulse ox 98% on room air. HEENT: Conjunctivae normal. Oral mucosa moist. NECK: No jugular venous distention. No lymph node enlargement. CARDIOVASCULAR: S1, S2, muffled. No S3, no S4, RESPIRATORY: Diminished breath sounds at the bases. A few scattered rhonchi. ABDOMEN: Soft, nontender. LEGS: No edema, no swelling. NERVOUS SYSTEM: No focal deficits. LABS: WBC 11.62 . Other labs are noted. ASSESSMENT: 1. Fever, cough with possible acute bilateral pneumonia community-acquired with continued fever. 2. COVID-19 ruled out. 3. Increased WBC. 4. Hyponatremia. 5. Increased random glucose. RECOMMENDATIONS AND DISCUSSION: I recommend to continue current management and symptomatic treatment. Continue the antibiotics. Otherwise, continue the rest of medications and I would also recommend repeat chest x-ray in the morning and continue to monitor. Further recommendations to follow. Influenza and other viral markers are negative. MMODL / IJN: [id number] /
[2021-11-05] MEDS: TAMSULOSIN 0.4 MG CAP.ER.24H PO SCH (20:30)
[2021-11-06] MEDS: LEVOTHYROXINE 25 MCG TAB PO SCH (05:46)
[2021-11-06] MEDS: PANTOPRAZOLE 40 MG TABLET PO SCH (08:06)
[2021-11-06] MEDS: ASPIRIN 81 MG PO SCH (08:06)
[2021-11-06] MEDS: AZITHROMYCIN 500 MG TAB PO SCH (08:06)
[2021-11-06] MEDS: hydrALAZINE HCL 25 MG TAB PO SCH ×2 (08:06→20:32)
[2021-11-06] MEDS: PARoxetine 20 MG TAB PO SCH ×2 (08:06→20:31)
[2021-11-06] MEDS: METOPROLOL SUCCINATE (ER) 100 MG TAB.ER.24H PO SCH ×2 (08:06→20:32)
[2021-11-06] MEDS: LORATADINE 10 MG TAB PO SCH (08:06)
--- NOTE | 2021-11-06 08:24 | XR ---
EXAMINATION TYPE: XR chest 1V portable DATE OF EXAM: 11/06/2021 Comparison: 11/05/2021 Clinical History: 81-year-old male PNEUMONIA Findings: Heart upper limits of normal in size. Mild tortuosity/ectasia of the thoracic aorta. Pulmonary vascul ature within normal limits. There is subtle patchy hazy density in the periphery of the lungs, not as apparent as on the initial 11/04/2021 radiograph. No ileana consolidation or pleural effusion. 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 Impression: Some subtle patchy hazy peripheral lung densities are noted. This may in part relate to patient body habitus. They are not as apparent as on the initial 11/04/2021 exam.
[2021-11-06] MEDS ORDERED: AZITHROMYCIN 500 MG TAB PO STA (11:22)
--- NOTE | 2021-11-06 12:44 | P.PN ---
Subjective Principal diagnosis: Pneumonia This is an 81-year-old white male Center admitted for pneumonia. He is ambulating with some mild shortness of breath. However he is more concerned about chest congestion and fatigue. Episodes of diarrhea have been noted since hospitalization. Objective - Vital Signs Vital signs: Vital Signs Temp 98 F 11/06/21 09:55 Pulse 80 11/06/21 09:55 Resp 16 11/06/21 09:55 BP 127/57 11/06/21 09:55 Pulse Ox 98 11/06/21 09:55 Intake & Output 11/05/21 11/06/21 11/06/21 18:59 06:59 18:59 Intake Total 300 240 200 Output Total 650 Balance -350 240 200 Intake: Oral 300 240 200 Output: Urine 650 - Constitutional General appearance: Present: average body habitus - EENT Eyes: Absent: abnormal pupil - Respiratory Respiratory: bilateral: diminished - Cardiovascular Rhythm: regular Heart sounds: normal: S1, S2 Abnormal Heart Sounds: Absent: S3 Gallop - Gastrointestinal General gastrointestinal: Present: soft. Absent: tenderness - Labs CBC & Chem 7: 11/05/21 06:17 11/05/21 06:17 Labs: Microbiology - Last 24 Hours (Table) 11/04/21 11:00 Blood Culture - Preliminary Blood No Growth after 24 hours Assessment and Plan (1) Pneumonia Current Visit: Yes Status: Acute Code(s): J18.9 - PNEUMONIA, UNSPECIFIED ORGANISM SNOMED Code(s): 773687525 (2) Weakness Current Visit: Yes Status: Acute Code(s): R53.1 - WEAKNESS SNOMED Code(s): 27264200 (3) Essential (primary) hypertension Current Visit: No Status: Chronic Code(s): I10 - ESSENTIAL (PRIMARY) HYPERTENSION SNOMED Code(s): 22195467 Plan: Continue current regimen of treatment. Slight improvement. Check CBC and CMP in a.m. See orders otherwise
[2021-11-06] MEDS: TAMSULOSIN 0.4 MG CAP.ER.24H PO SCH (20:31)
--- NOTE | 2021-11-06 22:33 | PN ---
PROGRESS NOTE DATE OF SERVICE: 11/06/2021 REASON FOR FOLLOWUP: Pneumonia, community-acquired. INTERVAL HISTORY: The patient is afebrile. The patient is breathing more comfortably. The patient denies having any chest pain. He continues to have a cough but not bringing up any sputum. No nausea, no vomiting. No abdominal pain or diarrhea. PHYSICAL EXAMINATION: Blood pressure is 131/82 with a pulse of 83, temperature 98.4. He is 92% on room air. General description is an elderly male lying in bed in no distress. Respiratory system: Unlabored breathing, decreased intensity of breath sounds. No wheeze. Heart S1, S2. Regular rate and rhythm. Abdomen soft, no tenderness. LABS: Procalcitonin 0.16. DIAGNOSTIC IMPRESSION AND PLAN: Patient admitted to hospital with acute pneumonia, likely community-acquired. The patient seems to have clinically responded to the Rocephin and Zithromax; to continue while monitoring clinical course closely. Continue with supportive care. MMODL / IJN: [id number] /
[2021-11-07] MEDS: LEVOTHYROXINE 25 MCG TAB PO SCH (05:35)
--- NOTE | 2021-11-07 08:59 | P.PN ---
Subjective Principal diagnosis: Pneumonia This is an 81-year-old white male Center admitted for pneumonia. He is ambulating with some mild shortness of breath. However he is more concerned about chest congestion and fatigue. Episodes of diarrhea have been noted since hospitalization. Now, he does feel much better but still has poor stamina. He is quite sedentary at home and noticed that he was unable to do basic ADLs which prompted ER visitation. Objective - Vital Signs Vital signs: Vital Signs Temp 98.9 F 11/07/21 05:55 Pulse 73 11/07/21 05:55 Resp 17 11/07/21 05:55 BP 158/80 11/07/21 05:55 Pulse Ox 94 L 11/07/21 05:55 Intake & Output 11/06/21 11/07/21 11/07/21 18:59 06:59 18:59 Intake Total 200 240 Output Total 200 Balance 0 240 Intake: Oral 200 240 Output: Urine 200 Other: # Voids 4 # Bowel Movements 2 - Constitutional General appearance: Present: average body habitus, mild distress - EENT Eyes: Absent: abnormal pupil - Neck Neck: Absent: lymphadenopathy - Respiratory Respiratory: bilateral: diminished - Cardiovascular Rhythm: regular Heart sounds: normal: S1, S2 Abnormal Heart Sounds: Absent: S3 Gallop - Gastrointestinal General gastrointestinal: Present: soft. Absent: tenderness - Integumentary Integumentary: Absent: cellulitis - Labs CBC & Chem 7: 11/05/21 06:17 11/05/21 06:17 Labs: Abnormal Lab Results - Last 24 Hours (Table) 11/06/21 Range/Units 06:17 Procalcitonin 0.16 H (0.02-0.09) ng/mL Microbiology - Last 24 Hours (Table) 11/04/21 11:00 Blood Culture - Preliminary Blood No Growth after 48 hours Assessment and Plan (1) Pneumonia Current Visit: Yes Status: Acute Code(s): J18.9 - PNEUMONIA, UNSPECIFIED ORGANISM SNOMED Code(s): 980770652 (2) Weakness Current Visit: Yes Status: Acute Code(s): R53.1 - WEAKNESS SNOMED Code(s): 47491511 (3) Essential (primary) hypertension Current Visit: No Status: Chronic Code(s): I10 - ESSENTIAL (PRIMARY) HYPERT ENSION SNOMED Code(s): 34970955 Plan: Continue current regimen of treatment. Slight improvement. Check CBC and CMP in a.m. See orders otherwise We will repeat chest x-ray in a.m.
[2021-11-07 09:06] LABS: HCT 42.4 % (39.6-50.0); HGB 13.7 g/dL (13.0-17.0); MCHC 32.3 g/dL (32.0-37.0); Mean Platelet Volume 9.7 fL (9.5-12.2); Platelet Count 283 X 10*3/uL (140-440); RBC 4.56 X 10*6/uL (4.40-5.60); RDW 13.5 % (11.5-14.5); WBC 12.07 X 10*3/uL (4.50-10.00)
[2021-11-07 09:08] LABS: Albumin 3.5 g/dL (3.8-4.9); Albumin/Globulin Ratio 1.52 (1.60-3.17); Anion Gap 11.8 mmol/L (10.00-18.00); BUN/Creat Ratio 10.4 Ratio (12.00-20.00); Blood Urea Nitrogen 10.4 mg/dL (9.0-27.0); Calcium 8.6 mg/dL (8.7-10.3); Carbon Dioxide 24.2 mmol/L (20.0-27.5); Globulin 2.3 g/dL (1.6-3.3); Non-African American GFR(CKD) 70.8 (60.0-200.0); Potassium 4.2 mmol/L (3.5-5.5); Total Bilirubin 0.4 mg/dL (0.30-1.20); Total Protein 5.8 g/dL (6.2-8.2)
[2021-11-07] MEDS: METOPROLOL SUCCINATE (ER) 100 MG TAB.ER.24H PO SCH ×2 (10:31→20:53)
[2021-11-07] MEDS: PARoxetine 20 MG TAB PO SCH ×2 (10:31→20:07)
[2021-11-07] MEDS: ASPIRIN 81 MG PO SCH (10:32)
[2021-11-07] MEDS: hydrALAZINE HCL 25 MG TAB PO SCH ×2 (10:32→20:07)
[2021-11-07] MEDS: LORATADINE 10 MG TAB PO SCH (10:32)
[2021-11-07] MEDS: AZITHROMYCIN 250 MG TAB PO SCH (10:32)
[2021-11-07] MEDS: PANTOPRAZOLE 40 MG TABLET PO SCH (10:32)
[2021-11-07] MEDS: TAMSULOSIN 0.4 MG CAP.ER.24H PO SCH (20:07)
[2021-11-07] MEDS: ACETAMINOPHEN TAB 325 MG TAB PO PRN (20:53)
--- NOTE | 2021-11-07 23:36 | PN ---
PROGRESS NOTE DATE OF SERVICE: 11/07/2020 REASON FOR FOLLOWUP: Pneumonia. INTERVAL HISTORY: Patient is afebrile. The patient is breathing comfortably on room air. The patient denies having any chest pain. The patient's cough has decreased intensity, not bringing up any sputum. No abdominal pain or diarrhea. PHYSICAL EXAMINATION: Blood pressure 162/66, pulse of 80, temperature 98.7, he is 95% on room air. General description is an elderly male lying in bed in no distress. Respiratory system: Unlabored breathing, coarse breath sounds bilaterally. No wheeze. Heart S1, S2. Regular rate and rhythm. Abdomen soft, no tenderness. LABS: Hemoglobin 13.1, white count 12.7, creatinine 1.0. Blood culture negative. DIAGNOSTIC IMPRESSION AND PLAN: Patient with pneumonia likely community-acquired in this patient with overall improvement with Rocephin and Zithromax; to continue. Hopefully finish therapy with oral Ceftin and close outpatient followup. Continue supportive care. MMODL / IJN: [id number] /
[2021-11-08] MEDS: LEVOTHYROXINE 25 MCG TAB PO SCH (06:04)
[2021-11-08 09:11] LABS: HCT 43.2 % (39.6-50.0); HGB 13.8 g/dL (13.0-17.0); MCH 29.6 pg (27.0-32.0); MCHC 31.9 g/dL (32.0-37.0); MCV 92.7 fL (80.0-97.0); Mean Platelet Volume 9.6 fL (9.5-12.2); Platelet Count 326 X 10*3/uL (140-440); RBC 4.66 X 10*6/uL (4.40-5.60); RDW 13.6 % (11.5-14.5); WBC 11.51 X 10*3/uL (4.50-10.00)
--- NOTE | 2021-11-08 09:11 | XR ---
EXAMINATION TYPE: XR chest 2V DATE OF EXAM: 11/08/2021 COMPARISON: 11/06/2021 INDICATION: Respiratory distress TECHNIQUE: Single frontal view of the chest is obtained. FINDINGS: The heart size is normal. The pulmonary vasculature is normal. Minimal peripheral infiltrates remain present on the right. Left lung infiltrates may have resolved. Findings are nonspecific. Continued follow-up performed. IMPRESSION: 1. Improving peripheral nonspecific lung infiltrates. Continued follow-up can be performed.
[2021-11-08 09:23] LABS: African American GFR (CKD) 82.6 (60.0-200.0); Albumin 3.5 g/dL (3.8-4.9); Albumin/Globulin Ratio 1.33 (1.60-3.17); Anion Gap 12.5 mmol/L (10.00-18.00); BUN/Creat Ratio 8.81 Ratio (12.00-20.00); Blood Urea Nitrogen 8.8 mg/dL (9.0-27.0); Calcium 8.9 mg/dL (8.7-10.3); Carbon Dioxide 24.2 mmol/L (20.0-27.5); Globulin 2.7 g/dL (1.6-3.3); Non-African American GFR(CKD) 71.3 (60.0-200.0); Potassium 3.9 mmol/L (3.5-5.5); Total Bilirubin 0.5 mg/dL (0.30-1.20); Total Protein 6.2 g/dL (6.2-8.2)
[2021-11-08] MEDS: METOPROLOL SUCCINATE (ER) 100 MG TAB.ER.24H PO SCH ×2 (09:45→21:46)
[2021-11-08] MEDS: PARoxetine 20 MG TAB PO SCH ×2 (09:45→21:46)
[2021-11-08] MEDS: hydrALAZINE HCL 25 MG TAB PO SCH ×2 (09:46→21:46)
[2021-11-08] MEDS: ASPIRIN 81 MG PO SCH (09:46)
[2021-11-08] MEDS: PANTOPRAZOLE 40 MG TABLET PO SCH (09:46)
[2021-11-08] MEDS: AZITHROMYCIN 250 MG TAB PO SCH (09:46)
[2021-11-08] MEDS: LORATADINE 10 MG TAB PO SCH (09:46)
[2021-11-08] MEDS: ACETAMINOPHEN TAB 325 MG TAB PO PRN (21:46)
[2021-11-08] MEDS: TAMSULOSIN 0.4 MG CAP.ER.24H PO SCH (21:46)
--- NOTE | 2021-11-08 23:22 | PN ---
PROGRESS NOTE DATE OF SERVICE: 11/08/2021 REASON FOR FOLLOWUP: Pneumonia, likely community-acquired. INTERVAL HISTORY: Patient is afebrile. The patient has been breathing comfortably. The patient denies any chest pain. The patient's cough has decreased intensity. No nausea, no vomiting. No abdominal pain. No diarrhea. PHYSICAL EXAMINATION: Blood pressure is 162/74 with a pulse of 73, temperature of 98. He is 94% on room air. General description is an elderly male lying in bed in no distress. Respiratory system: Unlabored breathing, decreased intensity of breath sounds. No wheeze. Heart S1, S2. Regular rate and rhythm. Abdomen soft, no tenderness. Extremities: No edema of the feet. LAB: Hemoglobin is 13.8, white count 11.5, creatinine 1.0. Chest x-ray did show improvement. DIAGNOSTIC IMPRESSION AND PLAN: Patient admitted to the hospital with fever and cough with evidence of pneumonia likely community-acquired as the patient seems to have shown overall improvement with Rocephin, Zithromax to continue finish therapy with oral Ceftin and monitor clinical course closely. MMODL / IJN: [id number] /
[2021-11-09] MEDS: LEVOTHYROXINE 25 MCG TAB PO SCH (06:13)
--- NOTE | 2021-11-09 08:43 | P.DS ---
Providers Date of admission: 11/04/21 15:08 Attending physician: Remigio Varela Consults: 11/04/21 17:44 Consult Physician Routine Consulting Provider: Cynthia Ho Consult Reason/Comments: covid?? Do you want consulting provider notified?: Yes Primary care physician: Remigio Varela - Discharge Diagnosis(es) (1) Pneumonia Current Visit: Yes Status: Acute (2) Weakness Current Visit: Yes Status: Acute (3) Essential (primary) hypertension Current Visit: No Status: Chronic Hospital Course: This is a discharge summary an 81-year-old white male essentially admitted for clinical pneumonia. The patient had significant issues with ambulation and stamina. He was placed on appropriate treatment with Zithromax. The patient also had rest for support he did not need significant oxygen on discharge. No voiding symptoms. Tolerating diet appropriately he states he still weak but definitely significant improvement since last week. We discharged stable condition to follow-up with me in about 5 days Patient Condition at Discharge: Fair Plan - Discharge Summary New Discharge Prescriptions: New RX: Azithromycin [Zithromax] 250 mg PO DAILY #5 tab Continue RX: PARoxetine [Paxil] 20 mg PO BID RX: Metoprolol Succinate (ER) [Toprol XL] 100 mg PO BID RX: hydrALAZINE HCL [Apresoline] 25 mg PO BID RX: Omeprazole 20 mg PO DAILY RX: Levothyroxine Sodium [Synthroid] 25 mcg PO DAILY RX: Tamsulosin [Flomax] 0.4 mg PO HS RX: Cetirizine HCl [Zyrtec] 10 mg PO DAILY RX: Flaxseed Oil 1,000 mg PO DAILY RX: Aspirin EC [Ecotrin Low Dose] 81 mg PO DAILY Discharge Medication List RX: Metoprolol Succinate (ER) [Toprol XL] 100 mg PO BID 10/03/17 [History] RX: Omeprazole 20 mg PO DAILY 10/03/17 [History] RX: PARoxetine [Paxil] 20 mg PO BID 10/03/17 [History] RX: hydrALAZINE HCL [Apresoline] 25 mg PO BID 10/03/17 [History] RX: Aspirin EC [Ecotrin Low Dose] 81 mg PO DAILY 11/04/21 [History] RX: Cetirizine HCl [Zyrtec] 10 mg PO DAILY 11/04/21 [History] RX: Flaxseed Oil 1,000 mg PO DAILY 11/04/21 [History] RX: Levothyroxine Sodium [Synthroid] 25 mcg PO DAILY 11/04/21 [History] RX: Tamsulosin [Flomax] 0.4 mg PO HS 11/04/21 [History] RX: Azithromycin [Zithromax] 250 mg PO DAILY #5 tab 11/09/21 [Rx] Follow up Appointment(s)/Referral(s): Remigio Varela MD [Primary Care Provider] - 3 Days Discharge Disposition: HOME SELF-CARE
[2021-11-09 09:00] VITALS: BP 147/78; PULSE 87; RESP 14; TEMP 97.9
[2021-11-09] MEDS: LORATADINE 10 MG TAB PO SCH (09:11)
[2021-11-09] MEDS: AZITHROMYCIN 250 MG TAB PO SCH (09:11)
[2021-11-09] MEDS: PARoxetine 20 MG TAB PO SCH (09:11)
[2021-11-09] MEDS: hydrALAZINE HCL 25 MG TAB PO SCH (09:11)
[2021-11-09] MEDS: ASPIRIN 81 MG PO SCH (09:12)
[2021-11-09] MEDS: PANTOPRAZOLE 40 MG TABLET PO SCH (09:12)
[2021-11-09] MEDS: METOPROLOL SUCCINATE (ER) 100 MG TAB.ER.24H PO SCH (09:12)
--- NOTE | 2021-11-09 14:03 | PN ---
PROGRESS NOTE DATE OF SERVICE: 11/09/2021 REASON FOR FOLLOWUP: Pneumonia. INTERVAL HISTORY: The patient is afebrile. The patient is breathing comfortably on room air. The patient denies any chest pain. The patient's cough has decreased intensity, not bringing up any sputum. No abdominal pain or diarrhea. PHYSICAL EXAMINATION: Blood pressure 147/78, pulse 87, temperature 97.9. He is 94% on room air. General description is an elderly male in the room in no distress. Respiratory system: Unlabored breathing, decreased breath sounds at the bases. No wheeze. Heart S1, S2. Regular rate and rhythm. Abdomen: Soft. No tenderness. LABS: No CBC was done today. from yesterday was improved. Blood culture negative. DIAGNOSTIC IMPRESSION AND PLAN: Patient admitted to the hospital with fever concerning for pneumonia, likely community- acquired. Overall improvement on Rocephin. Finish a short course of oral Ceftin. Prescription sent to pharmacy and close outpatient followup. MMODL / IJN: [id number] /
[2021-11-09 14:17] VITALS: BMI 29.5
== END 2021-11-09 14:38 | disposition home or self-care (01) | DRG 194 ==
LOC: EC 10:15 → 4SSUR 15:08
PROVIDERS: ADMIT Family Medicine; ATTEND Family Medicine
DX: J18.9 Pneumonia, unspecified organism (principal); E87.1 Hypo-osmolality and hyponatremia; I10 Essential (primary) hypertension; Z20.822 Contact with and (suspected) exposure to COVID-19; F41.9 Anxiety disorder, unspecified; M19.90 Unspecified osteoarthritis, unspecified site; H54.7 Unspecified visual loss; H91.90 Unspecified hearing loss, unspecified ear; R19.7 Diarrhea, unspecified; I45.10 Unspecified right bundle-branch block; Z79.82 Long term (current) use of aspirin; Z79.890 Hormone replacement therapy; Z79.899 Other long term (current) drug therapy; Z87.891 Personal history of nicotine dependence; Z89.022 Acquired absence of left finger(s); Z89.021 Acquired absence of right finger(s); Z96.60 Presence of unspecified orthopedic joint implant; Z87.39 Personal history of other diseases of the musculoskeletal system and connective tissue; Z98.42 Cataract extraction status, left eye; Z98.41 Cataract extraction status, right eye; Z98.890 Other specified postprocedural states; Z80.0 Family history of malignant neoplasm of digestive organs
CPT/HCPCS: 36415; 71045; 71046; 80048; 80053; 81001; 82728; 83605; 83615; 83735; 83880; 84145; 84484; 85025; 85027; 85379; 85610; 85730; 86140; 87040; 87636; 93005; 96361; 96374; 99285

== ENCOUNTER → 2024-02-03 | Outpatient (CLI) | payer MEDICARE, BC | END | disposition home or self-care (01) | LOC: LABPAT 11:16 | PROVIDERS: ATTEND Orthopaedic Surgery | DX: Z01.812 Encounter for preprocedural laboratory examination (principal); M19.011 Primary osteoarthritis, right shoulder; Z22.322 Carrier or suspected carrier of Methicillin resistant Staphylococcus aureus | CPT/HCPCS: 87070 ==

== ENCOUNTER 2024-02-11 05:45 | Inpatient (IN) | payer MEDICARE, BC ==
--- NOTE | 2024-02-10 08:29 | P.HPOR ---
History of Present Illness H&P Date: 02/10/24 Chief Complaint: Right shoulder pain and weakness The patient is an 83-year-old retired gentleman who presents with progressive right shoulder pain and weakness for the past worsening recently. He is having pain with any attempted overhead use and at night. He's tried medications in addition to injections and home exercise without any relief. He notes daily pain that limits him significantly. Review of Systems As per HPI Past Medical History Past Medical History: Hypertension, Prostate Disorder, Sleep Apnea/CPAP/BIPAP, Thyroid Disorder Additional Past Medical History / Comment(s): does not use CPAP, hx of gout, hx of chest tube for spontaneous pneumothorax 1967, has appt. w/ urology this month for prostate "lump" History of Any Multi-Drug Resistant Organisms: None Reported Past Surgical History: Hernia Repair, Joint Replacement Additional Past Surgical History / Comment(s): jesus TKA, left foot big toe sx r/t gout, left hand fingers amputation, middle finger amputated to hand, ring finger almost fully amputated, jesus cataract sx, Lt. inguinal hernia repair Past Anesthesia/Blood Transfusion Reactions: No Reported Reaction Additional Past Anesthesia/Blood Transfusion Reaction / Comment(s): had a "bad trip" with hand surgery 40 yrs ago Smoking Status: Former smoker - Past Family History Father Family Medical History: Cancer Additional Family Medical History / Comment(s): esophagus Medications and Allergies Home Medications Medication Instructions Recorded Confirmed Type Metoprolol Succinate (ER) [Toprol 100 mg PO BID 10/03/17 02/05/24 History XL] Omeprazole 20 mg PO QAM 10/03/17 02/05/24 History PARoxetine [Paxil] 20 mg PO BID 10/03/17 02/05/24 History hydrALAZINE HCL [Apresoline] 25 mg PO BID 10/03/17 02/05/24 History Aspirin EC [Ecotrin Low Dose] 81 mg PO DAILY 11/04/21 02/05/24 History Cetirizine HCl [Zyrtec] 10 mg PO QAM 11/04/21 02/05/24 History Tamsulosin [Flomax] 0.4 mg PO HS 11/04/21 02/05/24 History flaxseed oiL [Flaxseed Oil] 1,000 mg PO DAILY 11/04/21 02/05/24 History Allergies Allergy/AdvReac Type Severity Reaction Status Date / Time No Known Allergies Allergy Verified 02/05/24 16:23 Physical Examination - Shoulder right Appearance: effusion Tenderness with palpation: anterior, bicipital groove Pain: with abduction, with forward flexion ROM: forward flexion: 60 degrees ROM: internal rotation: lower lumbar ROM: external rotation: 0 degrees Strength: abduction: 4/5 Strength: external rotation: 4/5 Tests: internal impingement tests: positive, external impingment tests: positive Results Patient is a well-developed well-nourished male approximately 5 foot 10, endomorphic habitus. HEENT exam is nonfocal, neck is supple. He is tender about the right anterior glenohumeral joint. Moderate crepitus is noted. Passively I'm able to fully elevate him to 110. Impingement test, Neer test and speed test are positive. His distal neurovascular exam appears intact in the right upper extremity. - Diagnostic results Shoulder x-ray: image reviewed (3 views of right shoulder obtain the office shows severe glenohumeral joint space narrowing along with diminished humeral head to come of distance.) Assessment and Plan Assessment: Right rotator cuff arthropathy Plan: I talked to the patient at length regarding his condition along with treatment options. At this point he remains quite symptomatic and limited because of his osteoarthrosis and rotator cuff arthropathy despite attempted conservative measures. After a thorough discussion of his options to include continued conservative measures versus surgery he opted to proceed with surgery. We'll plan to proceed with right reverse total shoulder arthroplasty. Risks and benefits were discussed at length in layman's terms.
[~2024-02-11 05:45] MED LIST changes: -ACETAMINOPHEN TAB 500 MG TAB PO ONE; -DEXAMETHASONE SOD PHOSPHATE 10 MG/ML 1 ML VIAL IV ONE; -MELOXICAM 7.5 MG TAB PO ONE; -MIDAZOLAM 2 MG/2 ML VIAL IV PRN; -MORPHINE SULFATE 4 MG/0.8 ML SYRINGE (INJ) IV PRN; -ONDANSETRON ODT 4 MG TAB PO ONE; +TRANEXAMIC 1,000 MG/100ML-NACL 1,000 MG in SALINE 1 100ML.BAG IVPB PRN; -TRANEXAMIC ACID 1,000 MG in SODIUM CHLORIDE 0.9% 50 ML IVPB ONE
[2024-02-11] MEDS: LACTATED RINGERS 1,000 ML IV SCH (06:40)
[2024-02-11] MEDS: DEXAMETHASONE SOD PHOSPHATE 4 MG/ML 1 ML VIAL IV ONE (06:40)
[2024-02-11] MEDS: ACETAMINOPHEN TAB 500 MG TAB PO PRN (06:40)
[2024-02-11] MEDS: ONDANSETRON 4 MG/2 ML VIAL IVP ONE (06:41)
[2024-02-11] MEDS: MELOXICAM 7.5 MG TAB PO PRN (06:41)
[2024-02-11] MEDS ORDERED: ACETAMINOPHEN TAB 500 MG TAB ONE (06:44)
[2024-02-11] MEDS ORDERED: HYDROmorphone 0.5 MG/0.5 ML SYRINGE IVP PRN (07:00)
[2024-02-11] MEDS: MIDAZOLAM 2 MG/2 ML VIAL IVP ONE (07:00)
--- NOTE | 2024-02-11 07:08 | P.ANPRN ---
Procedure Note - Anesthesia - Nerve Block Performed Right Interscalene Single Time Out Performed: Yes Date of Procedure: 02/11/24 Procedure Start Time: 07:00 Procedure Stop Time: 07:05 Location of Patient: PreOp Indication: Acute Post-Operative Pain, Analgesia, Requested by Surgeon Sedation Type: Sedate with meaningful contact maintained Preparation: Sterile Prep Position: Sitting Catheter: None Needle Types: Pajunk Needle Gauge: 21 Ultrasound used to visualize needle placement: Yes Ultrasound used to observe medication spread: Yes Injectate: 0.5% Ropivacaine (see comment for volume) (ropiv 20ml) Blood Aspirated: No Pain Paresthesia on Injection Noted: No Resistance on Injection: Normal Image Stored and Saved: Yes Events: Uneventful and Well Tolerated
[2024-02-11] MEDS ORDERED: ePHEDrine 50 MG/ML 1 ML VIAL ONE (07:30)
[2024-02-11] MEDS ORDERED: PHENYLEPHRINE 10 MG/ML VIAL ONE (07:30)
[2024-02-11] MEDS ORDERED: PROPOFOL 10 MG/ML 20 ML VIAL IV ONE (07:30)
[2024-02-11] MEDS ORDERED: ROPIVACAINE 5 MG/ML 30 ML VIAL ONE (07:30)
[2024-02-11] MEDS ORDERED: TRANEXAMIC 1,000 MG/100ML-NACL PREMIX BAG ONE (07:30)
[2024-02-11] MEDS ORDERED: fentaNYL (PF) 50 MCG/ML 2 ML AMP ONE (07:30)
[2024-02-11] MEDS ORDERED: NEOSTIGMINE 1 MG/ML 10 ML VIAL ONE (07:30)
[2024-02-11] MEDS ORDERED: SUCCINYLCHOLINE CHLORIDE 200 MG/10 ML VIAL IV ONE (07:30)
[2024-02-11] MEDS ORDERED: ROCURONIUM 10 MG/ML (5 ML VIAL) IV ONE (07:30)
[2024-02-11] MEDS ORDERED: GLYCOPYRROLATE 0.2 MG/ML 2 ML VIAL ONE (07:30)
[2024-02-11] MEDS: ceFAZolin 1,000 MG in SODIUM CHLORIDE 0.9% 1,000 ML IRRIGATION ONE (08:04)
[2024-02-11] MEDS ORDERED: hydrOXYzine pamoate 25 MG CAP PO PRN (09:39)
[2024-02-11] MEDS ORDERED: SENNOSIDES-DOCUSATE SODIUM 1 EACH TAB PO PRN (09:39)
--- NOTE | 2024-02-11 09:48 | P.OP ---
Date of Procedure: 02/11/24 Preoperative Diagnosis: Right rotator cuff arthropathy Postoperative Diagnosis: Same Procedure(s) Performed: Right reverse total shoulder arthroplasty Implants: Depuy Xtend Global Size 14 press-fit humeral stem, size 2 epiphysis, 38 mm glenosphere, Standard baseplate, 38+12 articular surface. Anesthesia: [facility] Surgeon: Mayur Yin Bit Welder #1: Devaughn Griffin Estimated Blood Loss (ml): 200 Pathology: none sent Condition: stable Disposition: PACU Indications for Procedure: The patient is an 83-year-old male presents with progressive right shoulder pain secondary to rotator cuff arthropathy despite conservative measures. A discussion of the risks and benefits of operative intervention versus continued conservative measures was made with the patient. He opted to proceed with surgery. Operative risks to include infection, neurovascular injury, development of blood clots, fracture, instability, possible need for subsequent procedures was discussed. Informed consent was obtained. Operative Findings: As below Description of Procedure: The patient was brought to the operating room, and after induction of general anesthesia was placed in a beachchair position. The bony prominences were appropriately padded. I examined the right shoulder. There was moderate lack of passive forward elevation and external rotation. The right upper extremity was prepped and draped in normal fashion. The bony outlines the coracoid process, distal clavicle, and acromion were outlined with a skin marker. A pulse centimeter deltopectoral incision was made lateral to the coracoid process. Skin was incised sharply. Subcutaneous tissues were divided bluntly. Electrocautery was used for hemostasis. The cephalic vein was identified and gently retracted laterally with the deltoid. The deltopectoral was bluntly developed. Subdeltoid adhesions were then released. The self-retaining retractor was placed. The conjoined tendon was retracted medially and the deltoid laterally. The biceps was identified. Its sheath was opened. A biceps tenotomy was performed along the remaining tendon did retract distally. Pseudocapsule was excised. The subscapularis was peeled off the lesser tuberosity and tagged with #2 Ethibond suture. The head was then exposed. The shoulder was dislocated. A starting hole was made in line with the humeral shaft. The canal was reamed by hand up to size 14. There was good distal chatter. The cutting guide was then placed. I planned on 20 of retroversion. The humeral head cut was then made. The bone was removed in one fragment. Residual inferomedial osteophytes were removed flush with the [place] cortical bone. Attention was then paid towards preparing the glenoid. An anterior and posterior retractors placed. The labrum was released from the 12-6 o'clock position. Remaining biceps was removed as well. A guidepin was placed in the inferior aspect of the glenoid with the guide slightly tilting inferior. The reamer was used down to a bleeding bony surface. The central peg hole was drilled. The standard baseplate was inserted with good purchase. Inferior, superior, and posterior locking screws the appropriate length were placed. Good purchase was obtained. The 38 mm glenosphere was inserted over a guidewire. This was fully seated. Care was taken to avoid any soft tissue interposition. Attention was then paid towards preparing the proximal humerus. The appropriate broach was placed and 20 of retroversion and was fully seated. An eccentric size 2 epiphyseal reamer was utilized. A size 14 stem with a size 2 epiphysis was placed and 20 of retroversion. Trial reduction was obtained with a 38 mm +12 articular surface. The shoulder was taken through range of motion. The shoulder was felt to be stable in flexion and extension with internal and external rotation. I felt there was adequate catholic of soft tissue tension judging off the conjoined tendon. The shoulder was gently dislocated. The trial components were then removed. The final size 14 press-fit stem along with a size 2 epiphysis was fully seated. There was good rotational stability. The 38 mm +12 articular surface was impacted. The shoulder again was gently reduced and taken through range of motion. Again it was felt to be stable in all planes. Pulsatile lavage was utilized. The subscapularis was a attached to the lesser tuberosity with #2 Ethibond suture. The deltopectoral interval was closed with interrupted 2-0 Vicryl sutures. The skin was reapproximated with 3- 0 subcuticular Prolene suture. Steri-Strips were applied. A sterile dressing was applied. A sling was placed. The patient was awoken from general anesthesia and transferred to recovery room in good condition. Blood loss was estimated at 200 mL. No complications were incurred. Sponge and needle counts were correct at the end the case. Devaughn MIRANDA assisted during the major components of the case to include exposure, glenoid and humeral preparation, implantation, and closure.Right
--- NOTE | 2024-02-11 10:28 | XR ---
EXAMINATION TYPE: XR shoulder limited RT DATE OF EXAM: 02/11/2024 10:24 AM CLINICAL INDICATION:Male, 83 years old with history of s/p reverse RTSA; PH[facility] COMPARISON: None TECHNIQUE: XR shoulder limited RT; examined in AP, internally rotated and scapular Y projections. FINDINGS: Shoulder arthroplasty with hardware intact. Subcutaneous lucencies compatible with recent surgery. No evidence for fracture. Hardware appears in tact The remaining portions of the visualized chest are unremarkable. IMPRESSION: 1. Post shoulder arthroplasty changes hardware intact. 2. No acute osseous pathology.
[2024-02-11 12:54] LABS: Basophils # (A) 0.1 k/uL (0-0.2); Basophils % (A) 1 %; Eosinophils % (A) 0 %; HCT 40.9 % (39.0-53.0); Hypochromasia Slight; Lymphocytes # (A) 1.2 k/uL (1.0-4.8); Lymphocytes % (A) 9 %; MCH 29.7 pg (25.0-35.0); MCHC 31.8 g/dL (31.0-37.0); MCV 93.1 fL (80.0-100.0); Mean Platelet Volume 7.8; Monocytes # (A) 0.4 k/uL (0-1.0); Monocytes % (A) 3 %; Neutrophils # (A) 10.8 k/uL (1.3-7.7); Neutrophils % (A) 86 %; Platelet Count 221 k/uL (150-450); RDW 13.9 % (11.5-15.5); WBC 12.5 k/uL (3.8-10.6)
[2024-02-11] MEDS: PARoxetine 20 MG TAB PO SCH (20:15)
[2024-02-11] MEDS: TAMSULOSIN 0.4 MG CAP.ER.24H PO SCH (20:15)
[2024-02-11] MEDS: hydrALAZINE HCL 25 MG TAB PO SCH (20:15)
[2024-02-11] MEDS: HYDROcodone/APAP 5-325MG 1 EACH TAB PO PRN (22:51)
[2024-02-12] MEDS: HYDROcodone/APAP 5-325MG 1 EACH TAB PO PRN (05:05)
[2024-02-12] MEDS: HYDROmorphone 0.5 MG/0.5 ML SYRINGE IVP PRN ×2 (06:29→18:12)
[2024-02-12] MEDS: PANTOPRAZOLE 40 MG TABLET PO SCH (06:30)
--- NOTE | 2024-02-12 08:27 | P.CONS ---
History of Present Illness - Reason for Consult Consult date: 02/12/24 Medical management - Chief Complaint Rotator cuff repair - History of Present Illness The patient is an 83-year-old white male who I have been consulted for for medical management underlying history of hypertension he is here postop day #1 for right rotator cuff repair. The patient is in a considerable mount of pain but he seems to be resting comfortably. Postop hypoxia is noted. He is on oneil pplemental oxygen but comfortable. No dizziness no chest pain no voiding difficulty stated. No significant nausea, vomiting or diarrhea. Review of Systems Constitutional: Denies chills, Denies fever Eyes: denies blurred vision, denies pain Ears, nose, mouth and throat: Denies headache, Denies sore throat Respiratory: Reports as per HPI, Denies cough Gastrointestinal: Denies abdominal pain, Denies diarrhea, Denies nausea, Denies vomiting Musculoskeletal: Denies myalgias Past Medical History Past Medical History: Hypertension, Prostate Disorder, Sleep Apnea/CPAP/BIPAP, Thyroid Disorder Additional Past Medical History / Comment(s): does not use CPAP, hx of gout, hx of chest tube for spontaneous pneumothorax 1967, has appt. 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 inguinal hernia repair Past Anesthesia/Blood Transfusion Reactions: No Reported Reaction Additional Past Anesthesia/Blood Transfusion Reaction / Comm: had a "bad trip" with hand surgery 40 yrs ago Past Psychological History: Anxiety Smoking Status: Former smoker Past Alcohol Use History: Occasional Additional Past Alcohol Use History / Comment(s): quit smoking 1973, smoked 1/2 ppd x 10 yrs. has alcohol drink 2 x /month, used to drink heavier at least every other day Past Drug Use History: None Reported - Past Family History Father Family Medical History: Cancer Additional Family Medical History / Comment(s): esophagus Medications and Allergies Home Medications Medication Instructions Recorded Confirmed Type Metoprolol Succinate (ER) [Toprol 100 mg PO BID 10/03/17 02/11/24 History XL] Omeprazole 20 mg PO QAM 10/03/17 02/11/24 History PARoxetine [Paxil] 20 mg PO BID 10/03/17 02/11/24 History hydrALAZINE HCL [Apresoline] 25 mg PO BID 10/03/17 02/11/24 History Aspirin EC [Ecotrin Low Dose] 81 mg PO DAILY 11/04/21 02/11/24 History Cetirizine HCl [Zyrtec] 10 mg PO QAM 11/04/21 02/11/24 History Tamsulosin [Flomax] 0.4 mg PO HS 11/04/21 02/11/24 History flaxseed oiL [Flaxseed Oil] 1,000 mg PO DAILY 11/04/21 02/11/24 History Allergies Allergy/AdvReac Type Severity Reaction Status Date / Time No Known Allergies Allergy Verified 02/05/24 16:23 Physical Exam Vitals: Vital Signs Temp Pulse Pulse Resp BP Pulse Ox 02/12/24 06:55 98.0 F 60 18 134/68 92 L 02/12/24 01:50 97.3 F L 64 20 128/64 92 L 02/11/24 19:20 97.8 F 62 20 115/57 91 L 02/11/24 14:44 97.4 F L 54 L 19 121/66 93 L 02/11/24 12:50 60 103/53 92 L 02/11/24 12:35 57 L 119/72 91 L 02/11/24 12:20 54 L 114/69 91 L 02/11/24 12:05 53 L 112/67 90 L 02/11/24 11:50 54 L 138/69 91 L 02/11/24 11:35 55 L 112/67 92 L 02/11/24 11:25 55 L 124/50 90 L 02/11/24 11:10 97.4 F L 53 L 18 129/67 90 L 02/11/24 10:33 52 L 16 95/52 95 02/11/24 10:19 54 L 16 94/49 95 02/11/24 10:03 58 L 16 96/51 95 02/11/24 09:43 97 F L 64 12 103/50 95 Intake and Output 02/11/24 02/12/24 02/12/24 22:59 06:59 14:59 Intake Total 650 Balance 650 Intake: Oral 650 Other: Voiding Method Toilet # Voids 1 4 - Constitutional General appearance: cooperative, no disheveled, obese - EENT Eyes: no abnormal pupil - Neck Neck: no lymphadenopathy - Respiratory Respiratory: bilateral: diminished - Cardiovascular Rhythm: regular Heart sounds: normal: S1, S2 Abnormal Heart Sounds: no S3 Gallop - Gastrointestinal General gastrointestinal: soft, no tenderness - Integumentary Integumentary: no cellulitis Results CBC & Chem 7: 02/11/24 12:24 Labs: Abnormal Lab Results - Last 24 Hours (Table) 02/11/24 Range/Units 12:24 WBC 12.5 H (3.8-10.6) k/uL Neutrophils # 10.8 H (1.3-7.7) k/uL Assessment and Plan (1) Rotator cuff impingement syndrome of left shoulder Current Visit: Yes Status: Acute Code(s): M75.42 - IMPINGEMENT SYNDROME OF LEFT SHOULDER SNOMED Code(s): 729891127 (2) Hypertension Current Visit: Yes Status: Acute Code(s): I10 - ESSENTIAL (PRIMARY) HYPERTENSION SNOMED Code(s): 48846573 (3) GERD (gastroesophageal reflux disease) Current Visit: No Status: Acute Code(s): K21.9 - GASTRO-ESOPHAGEAL REFLUX DISEASE WITHOUT ESOPHAGITIS SNOMED Code(s): 748754667 Plan: Postop pulmonary toilet. Reconcile home medications. Watch blood pressure closely. Pain control per orthopedic team. Anticipate discharge in next 24-48 hours if voiding properly. Consider Flomax. See orders otherwise. Time with Patient: Greater than 30
[2024-02-12] MEDS ORDERED: NON FORMULARY DRUG (Flaxseed Oil [Flaxseed Oil] 1,000 MG Capsule) PO SCH (09:00)
[2024-02-12] MEDS: LORATADINE 10 MG TAB PO SCH (09:19)
[2024-02-12] MEDS: ASPIRIN 325 MG TAB PO SCH (09:20)
[2024-02-12] MEDS: METOPROLOL SUCCINATE (ER) 100 MG TAB.ER.24H PO SCH (09:20)
--- NOTE | 2024-02-12 12:36 | P.PN ---
Subjective Progress Note Date: 02/12/24 Principal diagnosis: right shoulder rotator cuff arthropathy patient was seen at bedside this morning lying semirecumbent position with sling and dressing present to right upper extremity. Patient says he has been up once or twice since surgery yesterday. Patient says pain is controlled medication somewhat. Patient says he has not urinate on his own since surgery yesterday. Patient says he does have a history of prostate issues and does follow with Dr. Plascencia, urologist for this. patient says he does take Flomax normally at home. Patient says he has not had a bowel movement, however, patient says he has been passing gas. Patient says he has been drinking a lot of fluids and surgery still has been unable to urinate. Patient denies chest pain, fever, shortness of breath, nausea, vomiting, change in vision, loss of bowel/bladder control. Objective - Vital Signs Vital signs: Vital Signs Temp 98.0 F 02/12/24 06:55 Pulse 60 02/12/24 10:20 Resp 18 02/12/24 10:20 BP 134/68 02/12/24 06:55 Pulse Ox 95 02/12/24 10:20 FiO2 Intake & Output 02/11/24 02/12/24 02/12/24 18:59 06:59 18:59 Intake Total 801 650 Output Total 200 475 Balance 601 650 -475 Weight 96.8 kg Intake: IV 801 Oral 650 Output: Urine 475 Estimated Blood Loss 200 Other: Voiding Method Toilet Toilet Urinal # Voids 1 4 - Exam right upper extremity: Incision is clean, dry, and intact. The bulky dressing is in good condition. There is minimal soft tissue swelling and ecchymosis surrounding the medial and lateral aspects of the incision. Calf is soft, no tenderness with palpation. Plantar flexion, dorsiflexion, EHL, FHL are intact. Sensory exam to light touch throughout the extremity is intact, dorsal pedis pulses 2+. - Labs CBC & Chem 7: 02/11/24 12:24 Labs: Abnormal Lab Results - Last 24 Hours (Table) 02/11/24 Range/Units 12:24 WBC 12.5 H (3.8-10.6) k/uL Neutrophils # 10.8 H (1.3-7.7) k/uL Assessment and Plan Assessment: 1. right shoulder rotator cuff arthropathy - Postop day #1 status post reverse right total shoulder arthroplasty Plan: 1. right shoulder rotator cuff arthropathy - reverse right total shoulder arthroplasty performed yesterday, 02/11/2024. Patient stable at bedside this morning with sling present to right upper extremity. Patient has been unable to urinate on his own. patient currently on Flomax. We'll plan to keep patient 1 more night for additional pain control and due to urinary retention. Urology consulted due to urinary retention. If patient still unable to urinate, plan to send patient home tomorrow with Nguyen and to follow up with urology in 3 days. 2. Appreciate medical management 3. Pain management - [place] 4. DVT prophylaxis - aspirin 5. GI prophylaxis- senna 6. PT/OT - nonweightbearing right upper extremity. Maintain right upper extrem ity in sling. 7. Encourage incentive spirometer use 8. Discharge planning - plan for discharge home tomorrow Time with Patient: Less than 30
--- NOTE | 2024-02-12 21:46 | P.GSCN ---
History of Present Illness Consult date: 02/12/24 Reason for Consult: Urinary retention Requesting physician: Devaughn Griffin History of present illness: The patient is an 83-year-old white male who underwent a right reverse total shoulder arthroplasty on February 11, 2024. He developed postoperative urinary retention and I am consulted for this reason. The patient was recently seen in the office by Dr. Plascencia to evaluate an elevated PSA level of 7.7. Examination revealed right-sided prostatic firmness, and he has been scheduled to undergo a prostate ultrasound with biopsies later this month. He takes tamsulosin for BPH. Postoperatively, he has been found to empty his bladder incompletely and has been straight catheterized twice, initially for 800 cc. The patient states that his voiding is similar to what it was preoperatively. He describes his urinary stream is "medium", denies straining to void, and feels he empties his bladder adequately. His most recent bladder scan showed a postvoid residual of 300 cc. Review of Systems - Genitourinary Reports as per HPI Past Medical History Past Medical History: Hypertension, Prostate Disorder, Sleep Apnea/CPAP/BIPAP, T hyroid Disorder Additional Past Medical History / Comment(s): does not use CPAP, hx of gout, hx of chest tube for spontaneous pneumothorax 1967, has appt. 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 inguinal hernia repair Past Anesthesia/Blood Transfusion Reactions: No Reported Reaction Additional Past Anesthesia/Blood Transfusion Reaction / Comm: had a "bad trip" with hand surgery 40 yrs ago Past Psychological History: Anxiety Smoking Status: Former smoker Past Alcohol Use History: Occasional Additional Past Alcohol Use History / Comment(s): quit smoking 1973, smoked 1/2 ppd x 10 yrs. has alcohol drink 2 x /month, used to drink heavier at least every other day Past Drug Use History: None Reported - Past Family History Father Family Medical History: Cancer Additional Family Medical History / Comment(s): esophagus Medications and Allergies Home Medications Medication Instructions Recorded Confirmed Type Metoprolol Succinate (ER) [Toprol 100 mg PO BID 10/03/17 02/11/24 History XL] Omeprazole 20 mg PO QAM 10/03/17 02/11/24 History PARoxetine [Paxil] 20 mg PO BID 10/03/17 02/11/24 History hydrALAZINE HCL [Apresoline] 25 mg PO BID 10/03/17 02/11/24 History Aspirin EC [Ecotrin Low Dose] 81 mg PO DAILY 11/04/21 02/11/24 History Cetirizine HCl [Zyrtec] 10 mg PO QAM 11/04/21 02/11/24 History Tamsulosin [Flomax] 0.4 mg PO HS 11/04/21 02/11/24 History flaxseed oiL [Flaxseed Oil] 1,000 mg PO DAILY 11/04/21 02/11/24 History Allergies Allergy/AdvReac Type Severity Reaction Status Date / Time No Known Allergies Allergy Verified 02/05/24 16:23 Surgical - Exam Vital Signs Temp Pulse Resp BP Pulse Ox 97.8 F 60 18 139/65 96 02/11/24 06:35 02/11/24 06:35 02/11/24 06:35 02/11/24 06:35 02/11/24 06:35 - General well developed, well nourished, no distress - Respiratory normal respiratory effort - Abdomen Abdomen: soft, non tender, no guarding, no rigid, no rebound - Genitourinary normal penis with no external lesions, testicles non-tender - Psychiatric oriented to time, oriented to person, oriented to place, speech is normal, memory intact Results - Labs 02/11/24 12:24 Assessment and Plan (1) Retention of urine, unspecified Current Visit: Yes Status: Acute Code(s): R33.9 - RETENTION OF URINE, UNSPECIFIED SNOMED Code(s): 289306683 Plan: I would suggest that tamsulosin be continued, and that bladder scan be utilized to continue to monitor bladder emptying. As long as postvoid residuals are consistently below 400 cc, he may be discharged home on tamsulosin and follow-up with Dr. Plascencia as previously scheduled. Time with Patient: Greater than 30
--- NOTE | 2024-02-13 08:35 | P.PN ---
Subjective Progress Note Date: 02/13/24 Principal diagnosis: Right rotator cuff repair This is an 83-year-old male who is postop day #2 for right rotator cuff repair. Patient did have some postop urinary retention and was seen and evaluated by urology who is recommending Flomax and bladder scanning. Patient reports he has been able to urinate a few times throughout the night with no issues. Patient seen this morning sitting up at side of bed. He reports he is feeling well and pain is well-controlled. Objective - Vital Signs Vital signs: Vital Signs Temp 98.4 F 02/13/24 06:54 Pulse 64 02/13/24 06:54 Resp 17 02/13/24 06:54 BP 172/74 02/13/24 06:54 Pulse Ox 92 L 02/13/24 06:54 FiO2 Intake & Output 02/12/24 02/13/24 02/13/24 18:59 06:59 18:59 Output Total 875 400 Balance -875 -400 Output: Urine 875 400 Other: Voiding Method Toilet Toilet Urinal - Constitutional General appearance: Present: cooperative, no acute distress - EENT Eyes: Present: PERRLA - Neck Neck: Present: normal ROM. Absent: lymphadenopathy, rigidity - Respiratory Respiratory: bilateral: diminished - Cardiovascular Rhythm: regular - Gastrointestinal General gastrointestinal: Present: soft. Absent: tenderness - Integumentary Integumentary Comment(s): Dressing to right shoulder dry and intact, sling in place - Psychiatric Psychiatric: Present: A&O x's 3, appropriate affect, intact judgment & insight - Labs CBC & Chem 7: 02/11/24 12:24 Assessment and Plan (1) Rotator cuff impingement syndrome of right shoulder Current Visit: Yes Status: Acute Code(s): M75.41 - IMPINGEMENT SYNDROME OF RIGHT SHOULDER SNOMED Code(s): 705339634 (2) Hypertension Current Visit: Yes Status: Acute Code(s): I10 - ESSENTIAL (PRIMARY) HYPERTENSION SNOMED Code(s): 87527167 (3) Postoperative hypoxia Current Visit: Yes Status: Acute Code(s): R09.02 - HYPOXEMIA; Z98.890 - OTHER SPECIFIED POSTPROCEDURAL STATES SNOMED Code(s): 027532282 (4) GERD (gastroesophageal reflux disease) Current Visit: No Status: Acute Code(s): K21.9 - GASTRO-ESOPHAGEAL REFLUX DISEASE WITHOUT ESOPHAGITIS SNOMED Code(s): 073373363 Plan: Patient may be discharged from medical standpoint. Patient seen and evaluated by nurse practitioner, physician in agreement with plan
--- NOTE | 2024-02-13 12:05 | P.PN ---
Subjective Progress Note Date: 02/13/24 Principal diagnosis: right shoulder rotator cuff arthropathy patient was seen at bedside this morning lying semirecumbent position with sling and dressing present to right upper extremity. Patient says he has been up once or twice since surgery. Patient says pain is controlled medication somewhat. Patient says he did discuss urinary retention with Dr. Real yesterday. Patient says he has not had a bowel movement, however, patient says he has been passing gas. Patient eager to go home. Nursing mentioned patient O2 sat was decreased this morning. Patient currently on 2 L via nasal cannula at bedside. Patient denies chest pain, fever, shortness of breath, nausea, vomiting, change in vision, loss of bowel/bladder control. Objective - Vital Signs Vital signs: Vital Signs Temp 98.4 F 02/13/24 06:54 Pulse 64 02/13/24 06:54 Resp 17 02/13/24 06:54 BP 172/74 02/13/24 06:54 Pulse Ox 92 L 02/13/24 06:54 FiO2 Intake & Output 02/12/24 02/13/24 02/13/24 18:59 06:59 18:59 Output Total 875 400 269 Balance -875 -400 -269 Output: Urine 875 400 Post Void Residual 269 Other: Voiding Method Toilet Toilet Urinal - Exam right upper extremity: Incision is clean, dry, and intact. The bulky dressing is in good condition. There is minimal soft tissue swelling and ecchymosis surrounding the medial and lateral aspects of the incision. Calf is soft, no tenderness with palpation. Plantar flexion, dorsiflexion, EHL, FHL are intact. Sensory exam to light touch throughout the extremity is intact, dorsal pedis pulses 2+. - Labs CBC & Chem 7: 02/11/24 12:24 Assessment and Plan Assessment: 1. right shoulder rotator cuff arthropathy - Postop day #2 status post reverse right total shoulder arthroplasty Plan: 1. right shoulder rotator cuff arthropathy - reverse right total shoulder arthroplasty performed yesterday, 02/11/2024. Patient stable at bedside this morning with sling present to right upper extremity. Patient has been unable to urinate on his own. patient currently on Flomax. Urology recommending patient to folllow up outpt as long as PVR < 400. Continue flomax. O2 sat decreased this morning, medicine following and may keep one additional night if O2 sat does not improve. Patient stable from ortho standpoint for discharge home. 2. Appreciate medical management 3. Pain management - [place] 4. DVT prophylaxis - aspirin 5. GI prophylaxis- senna 6. PT/OT - nonweightbearing right upper extremity. Maintain right upper extremity in sling. 7. Encourage incentive spirometer use 8. Discharge planning - discharge home today pending improvement in O2 sat Time with Patient: Less than 30
--- NOTE | 2024-02-13 12:08 | P.DS ---
Providers Date of admission: 02/11/2024 Expected date of discharge: 02/13/24 Attending physician: Mayur Yin Consults: 02/11/24 09:39 Consult Physician Routine Consulting Provider: Remigio Varela Reason/Comments: medical management s/p reverse right total shoulder arthroplasty Do you want consulting provider notified?: Yes Primary care physician: Remigio Varela Hospital Course: Date of admission: 02/11/2024 Date of discharge: 02/13/2024 Admission diagnosis: Right shoulder rotator cuff arthropathy Discharge diagnosis: Same Attending physician: Dr. Yin Surgical procedures: Reverse right total shoulder arthroplasty Brief history: Patient is a 83-year-old male with a history of right shoulder rotator cuff arthropathy. At this point patient has failed conservative treatment measures and has opted to proceed with a elective reverse right total shoulder arthroplasty. Hospital course: Details of patient's surgery can be found in operative report. Patient tolerated the procedure well and was subsequently transported to orthopedic floor. Patient's orthopeidc and medical care was provided daily. Patient had daily laboratory tests performed for evaluation of overall blood counts. Patient had daily physical therapy to include strengthening range of motion as well as education with walker ambulation. Patient was treated with aspirin for their postoperative DVT prophylaxis during their inpatient stay. Patient was noted to have a relatively uneventful postoperative course. Patient reported satisfactory pain control with oral pain medications by postoperative day 2. Patient showed satisfactory progress with physical therapy. Patient moved steadily through the program and had no difficulty meeting the goals by postoperative day 2. Given patient's otherwise satisfactory course and having met physical therapy goals, plan is to discharge patient home on postoperative day 2. Discharge condition/disposition: Patient will be discharged home in stable condition. Discharge medications: Instructions are given on resumption of patient's normal daily medications per primary care recommendation, in addition patient will be prescribed [place]; senna; aspirin. Orthopedic Discharge Instructions: 1. Wound care and infection precautions, keep incision dry and covered while showering, no lotions, creams, moisturizers. No soaking, pools, hot tubs. Do not scrub over incision. 2. Non-weight bearing right upper extremity 3. Ice when necessary. Do not exceed 20 minutes per hour with ice pack. 4. Maintain sling to right upper extremity until seen at first follow up appointment. 5. Pain meds and anticoagulants per prescription. 6. Pain medication has potential to cause constipation. Increase oral fluid and fiber intake. Contact primary care provider if you have not had a bowel movement within 48 hours after discharge. 7. No anti-inflammatory medication until discussed at first post operative visit, this including Motrin, Aleve, Mobic, Diclofenac. 8. Follow up in office at 2 weeks postop with Manuel Goldman PA-C / Devaughn Griffin PA-C 9. Follow up with your primary care doctor 7-10 days after discharge. 10. Contact [facility] with any questions, . keep incision clean, dry, intact. While showering, cover steri-strips with Saran wrap. Keep steri-strips on until follow-up appointment in 2 weeks Assessment: Right shoulder rotator cuff arthropathy Procedures: Reverse right total shoulder arthroplasty Patient Condition at Discharge: Good Plan - Discharge Summary Discharge Rx Participant: Yes New Discharge Prescriptions: New Aspirin 325 mg PO DAILY #28 tab HYDROcodone/APAP 5-325MG [[place] 5-325] 1 - 2 tab PO Q6HR PRN #32 tab PRN Reason: Pain Sennosides/Docusate Sodium [Senna Plus 8.6-50 mg Softgel] 1 each PO DAILY #20 capsule No Action PARoxetine [Paxil] 20 mg PO BID Metoprolol Succinate (ER) [Toprol XL] 100 mg PO BID hydrALAZINE HCL [Apresoline] 25 mg PO BID Omeprazole 20 mg PO QAM Tamsulosin [Flomax] 0.4 mg PO HS Cetirizine HCl [Zyrtec] 10 mg PO QAM flaxseed oiL [Flaxseed Oil] 1,000 mg PO DAILY Aspirin EC [Ecotrin Low Dose] 81 mg PO DAILY Discharge Medication List Metoprolol Succinate (ER) [Toprol XL] 100 mg PO BID 10/03/17 [History] Omeprazole 20 mg PO QAM 10/03/17 [History] PARoxetine [Paxil] 20 mg PO BID 10/03/17 [History] hydrALAZINE HCL [Apresoline] 25 mg PO BID 10/03/17 [History] Aspirin EC [Ecotrin Low Dose] 81 mg PO DAILY 11/04/21 [History] Cetirizine HCl [Zyrtec] 10 mg PO QAM 11/04/21 [History] Tamsulosin [Flomax] 0.4 mg PO HS 11/04/21 [History] flaxseed oiL [Flaxseed Oil] 1,000 mg PO DAILY 11/04/21 [History] Aspirin 325 mg PO DAILY #28 tab 02/13/24 [Rx] HYDROcodone/APAP 5-325MG [[place] 5-325] 1 - 2 tab PO Q6HR PRN #32 tab 02/13/24 [Rx] Sennosides/Docusate Sodium [Senna Plus 8.6-50 mg Softgel] 1 each PO DAILY #20 capsule 02/13/24 [Rx] Follow up Appointment(s)/Referral(s): Devaughn Griffin, PAC [PHYSICIAN [employer] DES[employer]] - 2 Weeks Activity/Diet/Wound Care/Special Instructions: Orthopedic Discharge Instructions: 1. Wound care and infection precautions, keep incision dry and covered while showering, no lotions, creams, moisturizers. No soaking, pools, hot tubs. Do not scrub over incision. 2. Non-weight bearing right upper extremity 3. Ice when necessary. Do not exceed 20 minutes per hour with ice pack. 4. Maintain sling to right upper extremity until seen at first follow up appointment. 5. Pain meds and anticoagulants per prescription. 6. Pain medication has potential to cause constipation. Increase oral fluid and fiber intake. Contact primary care provider if you have not had a bowel movement within 48 hours after discharge. 7. No anti-inflammatory medication until discussed at first post operative visit, this including Motrin, Aleve, Mobic, Diclofenac. 8. Follow up in office at 2 weeks postop with Manuel Goldman PA-C / Devaughn Griffin PA-C 9. Follow up with your primary care doctor 7-10 days after discharge. 10. Contact [facility] with any questions, . keep incision clean, dry, intact. While showering, cover steri-strips with Saran wrap. Keep steri-strips on until follow-up appointment in 2 weeks Discharge Disposition: HOME SELF-CARE
--- NOTE | 2024-02-13 13:40 | CDI ---
Documentation Clarification Form Date: 02/13/2024 12:50:50 PM From: Elin Carrera RN, CCDS Phone: [phone] Admit Date: 02/11/2024 10:18:00 AM Patient Name: Martin Cornejo Visit Number: [id number] Discharge Date: ATTENTION: The Clinical Documentation Specialists (CDI) and [facility] Coding Staff appreciate your assistance in clarifying documentation. Please respond to the clarification below the line at the bottom and electronically sign. The CDI & [facility] Coding staff will review the response and follow-up if needed. Please note: Queries are made part of the Legal Health Record. If you have any questions, please contact the author of this message via ITS. Dr. aMyur Yin Postop urinary retention is documented in the internal medicine progress note one 02/13/24 and patient had right reverse total shoulder arthroplasty on 02/11/24. Additional clarification is requested regarding the relationship, if any, that exists between the diagnosis and the procedure. Patients Admitting Diagnosis: Right rotator cuff arthropathy Post-Operative Diagnosis: Same Procedure performed: Right reverse total shoulder arthroplasty History/Risk Factors: Hypertension, Prostate Disorder, Sleep Apnea/CPAP/BIPAP, Thyroid Disorder, Former smoker Clinical Indicators: 83-year-old male presents with progressive right shoulder pain secondary to rotator cuff arthropathy despite conservative measures. Postop day #1 has not urinate on his own since surgery yesterday. History of BPH on Flomax. Postoperatively, he has been found to empty his bladder incompletely and has been straight catheterized twice, initially for 800 cc. The patient states that his voiding is similar to what it was preoperatively. He describes his urinary stream is "medium", denies straining to void, and feels he empties his bladder adequately. His most recent bladder scan showed a postvoid residual of 300 cc. 02/11 VS 134/68 60 18 92% 3/L NC 02/11 Urology consult: Retention of urine, unspecified Treatment: Monitor postvoid residuals. Bladder scan per protocol to monitor bladder emptying. Flomax 0.4 MG PO HS 02/10-02/11 What relationship, if any, exists between the diagnosis of postop urinary retention and the procedure: [ ] Postop urinary retention is a complication of surgical procedure. [ ] Postop urinary retention is an expected outcome of the surgical procedure. [ x ] Postop urinary retention is related to patients co-morbid condition(s) of prostate disorder, BPH, not a complication of the procedure. [ ] Postop urinary retention has been ruled out [ ] Other please specify ____ [ ] Unable to determine (Template Last Revised: January 2021) MTDD
--- NOTE | 2024-02-13 14:14 | CDI ---
Documentation Clarification Form Date: 02/13/2024 01:41:30 PM From: Elin Carrera RN, CCDS Phone: [phone] Admit Date: 02/11/2024 10:18:00 AM Patient Name: Martin Cornejo Visit Number: [id number] Discharge Date: ATTENTION: The Clinical Documentation Specialists (CDI) and [facility] Coding Staff appreciate your assistance in clarifying documentation. Please respond to the clarification below the line at the bottom and electronically sign. The CDI & [facility] Coding staff will review the response and follow-up if needed. Please note: Queries are made part of the Legal Health Record. If you have any questions, please contact the author of this message via ITS. Dr. Remigio Varela Postop hypoxia is documented in the Medical consult on 02/12/24 and patient had Right reverse total shoulder arthroplasty on 02/11/24. Additional clarification is requested regarding the relationship, if any, that exists between the diagnosis and the procedure. Patients Admitting Diagnosis: Right rotator cuff arthropathy Post-Operative Diagnosis: Same Procedure performed: Right reverse total shoulder arthroplasty History/Risk Factors: Hypertension, Prostate Disorder, Sleep Apnea/CPAP/BIPAP, Thyroid Disorder, Former smoker Clinical Indicators: 83-year-old male presents with progressive right shoulder pain secondary to rotator cuff arthropathy despite conservative measures. He has history of sleep apnea, former smoker. hx of chest tube for spontaneous pneumothorax 1967, Postop day #1 Postop hypoxia is noted. He is on supplemental oxygen but comfortable. Lungs bilateral: diminished Respiratory Effort: Non-labored 4/10 VS 134/68 60 18 92% 3/L NC /10 VS (14:14) 114/56 62 19 92% 3/L NC 4/11 VS (06:54)172/74 64 17 98.4 92% 3/L NC Treatment: postop pulmonary toilet, Incentive spirometer use Monitor O2 Sat's (titrate) What relationship, if any, exists between the diagnosis of postop hypoxia and the procedure: [ ] Postop hypoxia is a complication of surgical procedure [ ] Postop hypoxia is an expected outcome of the surgical procedure [ ] Postop hypoxia is related to patients co-morbid condition(s) of & not a complication of the procedure [ x] Other please specify ___related to pneumonia._ [ ] Unable to determine (Template Last Revised: January 2021) MTDD
--- NOTE | 2024-02-13 16:06 | XR ---
EXAMINATION TYPE: XR chest 2V DATE OF EXAM: 02/13/2024 COMPARISON: 11/18/2021 INDICATION: Cough TECHNIQUE: Frontal and lateral views of the chest are obtained. FINDINGS: The heart size is normal. The pulmonary vasculature is normal. There is a left lower lobe infiltrate. Correlate for pneumonia.. IMPRESSION: 1. Left lower lobe infiltrate. Correlate for pneumonia. Follow-up can be performed.
--- NOTE | 2024-02-13 17:48 | P.PN ---
Subjective Progress Note Date: 02/13/24 Principal diagnosis: Incomplete bladder emptying The patient continues to receive tamsulosin. He states that he is voiding without difficulty, back to his baseline. He has not required straight catheterization overnight. He remains hospitalized due to hypoxia. Objective - Vital Signs Vital signs: Vital Signs Temp 98.4 F 02/13/24 13:39 Pulse 63 02/13/24 13:39 Resp 18 02/13/24 13:39 BP 135/65 02/13/24 13:39 Pulse Ox 95 02/13/24 13:39 FiO2 Intake & Output 02/12/24 02/13/24 02/13/24 18:59 06:59 18:59 Output Total 875 400 269 Balance -875 -400 -269 Output: Urine 875 400 Post Void Residual 269 Other: Voiding Method Toilet Toilet Toilet Urinal - Constitutional General appearance: Present: average body habitus, no acute distress - Psychiatric Psychiatric: Present: A&O x's 3 - Labs CBC & Chem 7: 02/11/24 12:24 Assessment and Plan (1) Retention of urine, unspecified Current Visit: Yes Status: Acute Code(s): R33.9 - RETENTION OF URINE, UNSPECIFIED SNOMED Code(s): 174252121 Plan: - Continue tamsulosin - Continue straight catheterization as needed for postvoid residuals exceeding 400 cc - I have suggested to the patient that his prostate ultrasound with biopsies should be rescheduled to a later date to reduce the risk of a prosthetic infection resulting from the biopsies. Our office will make these arrangements. Please notify me if we can be of any further assistance during this hospitalization.
[2024-02-13] MEDS: AZITHROMYCIN 500 MG TAB PO SCH (18:51)
[2024-02-13] MEDS: IPRATROPIUM-ALBUTEROL 3 ML NEB INHALATION SCH (21:14)
--- NOTE | 2024-02-14 08:42 | P.PN ---
Subjective Principal diagnosis: Pneumonia The patient is an 83-year-old white male status post Procedure for right shoulder repair. He had some postop urinary retention but now has developed small pneumonia. The patient is feeling much better but is still somewhat hypoxic. No fever stated. Objective - Vital Signs Vital signs: Vital Signs Temp 99.0 F 02/14/24 07:17 Pulse 65 02/14/24 07:17 Resp 20 02/14/24 07:17 BP 161/75 02/14/24 07:17 Pulse Ox 96 02/14/24 07:17 FiO2 Intake & Output 02/13/24 02/14/24 02/14/24 18:59 06:59 18:59 Intake Total 550 Output Total 269 350 Balance -269 550 -350 Intake: Oral 550 Output: Urine 350 Post Void Residual 269 Other: Voiding Method Toilet Toilet Urinal # Voids 0 3 - Constitutional General appearance: Present: cooperative, no acute distress - EENT Eyes: Absent: abnormal pupil - Neck Neck: Absent: lymphadenopathy - Respiratory Respiratory: bilateral: diminished - Cardiovascular Rhythm: regular Heart sounds: normal: S1, S2 Abnormal Heart Sounds: Absent: S3 Gallop - Gastrointestinal General gastrointestinal: Present: soft. Absent: tenderness - Neurologic Neurologic: Present: CNII-XII intact - Labs CBC & Chem 7: 02/11/24 12:24 Assessment and Plan (1) Rotator cuff impingement syndrome of left shoulder Current Visit: Yes Status: Acute Code(s): M75.42 - IMPINGEMENT SYNDROME OF LEFT SHOULDER SNOMED Code(s): 956619071 (2) Hypertension Current Visit: Yes Status: Acute Code(s): I10 - ESSENTIAL (PRIMARY) HYPERTENSION SNOMED Code(s): 42276078 (3) GERD (gastroesophageal reflux disease) Current Visit: No Status: Acute Code(s): K21.9 - GASTRO-ESOPHAGEAL REFLUX DISEASE WITHOUT ESOPHAGITIS SNOMED Code(s): 212782271 Plan: Postop pulmonary toilet. Empiric antibiotic treatment for pneumonia. Intermittent hypoxia. Check CBC and CMP in AM. Anticipate discharge in next 24-48 hours.
[2024-02-15 09:28] LABS: HCT 34.2 % (39.6-50.0); MCH 28.2 pg (27.0-32.0); MCHC 32.2 g/dL (32.0-37.0); MCV 87.7 FL (80.0-97.0); Mean Platelet Volume 9.9 FL (9.5-12.2); NRBC Per 100 WBC 0 X 10*3/uL (0.00-0.01); Platelet Count 244 X 10*3/uL (140-440); RDW 13.6 % (11.5-14.5); WBC 8.72 X 10*3/uL (4.50-10.00)
[2024-02-15 09:51] LABS: ALT 14 U/L (10-49); AST 26 U/L (14-35); Albumin 3.7 g/dL (3.8-4.9); Albumin/Globulin Ratio 1.76 Ratio (1.60-3.17); Alkaline Phosphatase 53 U/L (41-126); BUN/Creat Ratio 15.56 Ratio (12.00-20.00); Calcium 9.1 mg/dL (8.7-10.3); Carbon Dioxide 25.1 mmol/L (21.6-31.8); Chloride 101 mmol/L (96-109); Globulin 2.1 g/dL (1.6-3.3); Glucose 116 mg/dL (70-110); Potassium 4.4 mmol/L (3.5-5.5); Sodium 138 mmol/L (135-145); Total Bilirubin 0.6 mg/dL (0.3-1.2); Total Protein 5.8 g/dL (6.2-8.2)
--- NOTE | 2024-02-15 14:28 | P.PN ---
Subjective This is a pleasant 83 years old male who presents originally for right rotator cuff arthroplasty evaluated by orthopedic team and heart procedures and cleared him for discharge. Postoperatively he developed hypoxia and left lower lobe infiltrate, I reviewed chest x-ray myself and it is considerable infiltrate Patient was started on Rocephin yesterday however patient is still short of breath and looks tired. Most likely this is hospital-acquired pneumonia so we are going to change antibiotic to Zosyn today. Discussed plan with the patient and he is agreeable Continue with oxygen therapy He is afebrile labs reviewed and they look stable he has some leukocytosis which is improved. Also urologist evaluated the patient for acute urinary retention and continue with straight cath and he may follow-up as an outpatient with Flomax started Objective - Vital Signs Vital signs: Vital Signs Temp 98.8 F 02/15/24 08:07 Pulse 80 02/15/24 12:34 Resp 16 02/15/24 08:07 BP 122/66 02/15/24 08:07 Pulse Ox 93 L 02/15/24 08:42 FiO2 Intake & Output 02/14/24 02/15/24 02/15/24 18:59 06:59 18:59 Output Total 500 Balance -500 Output: Urine 500 Other: Voiding Method Toilet Toilet Toilet Urinal Urinal # Voids 3 6 # Bowel Movements 0 - Exam GENERAL: The patient is alert and oriented x3, not in any acute distress. Well developed, well nourished. HEENT: Pupils are round and equally reacting to light. EOMI. No scleral icterus. No conjunctival pallor. Normocephalic, atraumatic. No pharyngeal erythema. No thyromegaly. CARDIOVASCULAR: S1 and S2 present. No murmurs, rubs, or gallops. -PULMONARY: Chest is clear to auscultation, no wheezing , Left basal crepitation. On nasal oxygen via nasal cannula ABDOMEN: Soft, nontender, nondistended, normoactive bowel sounds. No palpable organomegaly. -MUSCULOSKELETAL: No joint swelling or deformity. Right shoulder surgical changes with wound closing and dressing in place EXTREMITIES: No cyanosis, clubbing, or pedal edema. NEUROLOGICAL: Gross neurological examination did not reveal any focal deficits. SKIN: No rashes. no petechiae. - Labs CBC & Chem 7: 02/15/24 05:58 02/15/24 05:58 Labs: Abnormal Lab Results - Last 24 Hours (Table) 02/15/24 02/15/24 Range/Units 05:58 05:58 RBC 3.90 L (4.40-5.60) X 10*6/uL Hgb 11.0 L (13.0-17.0) g/dL Hct 34.2 L (39.6-50.0) % Glucose 116 H (70-110) mg/dL Total Protein 5.8 L (6.2-8.2) g/dL Albumin 3.7 L (3.8-4.9) g/dL Assessment and Plan Assessment: right rotator cuff a arthropathy, s/p implant on 02/10. Today postop day #5. Postoperative hospital-acquired left lower lobe pneumonia Acute hypoxic respiratory failure Acute urinary retention secondary to above Plan: Change antibiotic to Zosyn Continue with oxygen Bronchodilator breathing treatment Orthopedic team cleared the patient for discharge Urologist also evaluated the patient on the case Labs and medication were reviewed.. Continue same treatment. Continue with symptomatic treatment. Resume home medication. Monitor labs and vitals. DVT and GI prophylaxis. Further recommendations as per clinical course of the patient DVT prophylaxis: Subcutaneous heparin GI Prophylaxis: Pepcid PT/OT: Pending Prognosis is guarded
[2024-02-15] MEDS: HEPARIN SODIUM,PORCINE 5,000 UNIT/ML 1 ML VIAL SQ SCH (14:48)
[2024-02-15] MEDS: PIPERACILLIN-TAZOBACTAM 3.375 GM in SODIUM CHLORIDE 0.9% 100 ML IVPB SCH (16:44)
[2024-02-15] MEDS: FAMOTIDINE 20 MG/2 ML VIAL IV SCH (20:13)
--- NOTE | 2024-02-16 16:23 | XR ---
EXAMINATION TYPE: XR chest 1V DATE OF EXAM: 02/16/2024 5:56 AM CLINICAL INDICATION:Male, 83 years old with history of sob; [facility] COMPARISON: 02/13/2024, 11/08/2021 TECHNIQUE: XR chest 1V Portable AP radiograph of the chest.. FINDINGS: Lines/Tubes/Devices: No indwelling lines are seen. Heart/mediastinum: Heart size upper normal. Stable mediastinum. Pulmonary vascularity: Not increased, Lungs/Pleura: Patchy opacity suggesting airspace disease in the left mid to lower lung shows improvem ent with small residual. No sizable pleural effusions are seen. Right lung is stable. Mild right basi lar atelectasis. No visualized pneumothorax. Musculoskeletal: Osseous structures appear grossly unchanged. A right reverse glenohumeral arthroplas ty is again present. Other findings: Stable mild asymmetric elevation right hemidiaphragm. IMPRESSION: Improving airspace opacities on the left, with small residual.
--- NOTE | 2024-02-17 07:35 | P.PN ---
Subjective This is a pleasant 83 years old male who presents originally for right rotator cuff arthroplasty evaluated by orthopedic team and heart procedures and cleared him for discharge. Postoperatively he developed hypoxia and left lower lobe infiltrate, I reviewed chest x-ray myself and it is considerable infiltrate Patient was started on Rocephin yesterday however patient is still short of breath and looks tired. Most likely this is hospital-acquired pneumonia so we are going to change antibiotic to Zosyn today. Discussed plan with the patient and he is agreeable Continue with oxygen therapy He is afebrile labs reviewed and they look stable he has some leukocytosis which is improved. Also urologist evaluated the patient for acute urinary retention and continue with straight cath and he may follow-up as an outpatient with Flomax started 02/17/2024 Patient breathing better, less lethargic Less left lung basal crepitation. Continue Zosyn Repeat chest x-ray in the morning His right shoulder pain improving dressing is in the place Objective - Vital Signs Vital signs: Vital Signs Temp 98.6 F 02/16/24 14:26 Pulse 68 02/16/24 15:59 Resp 16 02/16/24 14:26 BP 166/71 02/16/24 14:26 Pulse Ox 97 02/16/24 14:26 FiO2 Intake & Output 02/15/24 02/16/24 02/16/24 18:59 06:59 18:59 Intake Total 900 Balance 900 Intake: Oral 900 Other: Voiding Method Toilet Toilet # Voids 3 2 1 - Exam GENERAL: The patient is alert and oriented x3, not in any acute distress. Well developed, well nourished. HEENT: Pupils are round and equally reacting to light. EOMI. No scleral icterus. No conjunctival pallor. Normocephalic, atraumatic. No pharyngeal erythema. No thyromegaly. CARDIOVASCULAR: S1 and S2 present. No murmurs, rubs, or gallops. -PULMONARY: Chest is clear to auscultation, no wheezing , Left basal crepitation. On nasal oxygen via nasal cannula ABDOMEN: Soft, nontender, nondistended, normoactive bowel sounds. No palpable organomegaly. -MUSCULOSKELETAL: No joint swelling or deformity. Right shoulder surgical changes with wound closing and dressing in place EXTREMITIES: No cyanosis, clubbing, or pedal edema. NEUROLOGICAL: Gross neurological examination did not reveal any focal deficits. SKIN: No rashes. no petechiae. - Labs CBC & Chem 7: 02/15/24 05:58 02/15/24 05:58 Assessment and Plan Assessment: right rotator cuff a arthropathy, s/p implant on 02/10. Today postop day #5. Postoperative hospital-acquired left lower lobe pneumonia Acute hypoxic respiratory failure Acute urinary retention secondary to above Plan: Change antibiotic to Zosyn Continue with oxygen Bronchodilator breathing treatment Orthopedic team cleared the patient for discharge Urologist also evaluated the patient on the case Labs and medication were reviewed.. Continue same treatment. Continue with symptomatic treatment. Resume home medication. Monitor labs and vitals. DVT and GI prophylaxis. Further recommendations as per clinical course of the patient DVT prophylaxis: Subcutaneous heparin GI Prophylaxis: Pepcid PT/OT: Pending Prognosis is guarded
--- NOTE | 2024-02-17 08:15 | XR ---
EXAMINATION TYPE: XR chest 1V DATE OF EXAM: 02/17/2024 6:56 AM CLINICAL INDICATION:Male, 83 years old with history of sob; [facility] COMPARISON: Chest radiographs from 02/16/2024. TECHNIQUE: XR chest 1V Frontal view of the chest. FINDINGS: Lungs/Pleura: There is no evidence of pleural effusion, focal consolidation, or pneumothorax. Pulmonary vascularity: Unremarkable. Heart/mediastinum: Cardiomediastinal silhouette is unremarkable. Musculoskeletal: No acute osseous pathology. Right shoulder arthroplasty changes. Other findings: None IMPRESSION: No acute cardiopulmonary disease/process.
[2024-02-17 08:36] LABS: Basophils % (A) 0.9 %; Eosinophils # (A) 0.62 X 10*3/uL (0.04-0.35); Eosinophils % (A) 5.8 %; HCT 33.7 % (39.6-50.0); HGB 10.7 g/dL (13.0-17.0); Lymphocytes # (A) 1.83 X 10*3/uL (0.90-5.00); Lymphocytes % (A) 17.1 %; MCH 28.7 pg (27.0-32.0); MCHC 31.8 g/dL (32.0-37.0); MCV 90.3 FL (80.0-97.0); Mean Platelet Volume 9.8 FL (9.5-12.2); Monocytes # (A) 1.36 X 10*3/uL (0.20-1.00); Monocytes % (A) 12.7 %; NRBC Per 100 WBC 0 X 10*3/uL (0.00-0.01); Neutrophils # (A) 6.72 X 10*3/uL (1.80-7.70); Neutrophils % (A) 62.6 %; Platelet Count 302 X 10*3/uL (140-440); RBC 3.73 X 10*6/uL (4.40-5.60); RDW 13.6 % (11.5-14.5); WBC 10.73 X 10*3/uL (4.50-10.00)
[2024-02-17 08:49] LABS: BUN/Creat Ratio 14.09 Ratio (12.00-20.00); Blood Urea Nitrogen 15.5 mg/dL (9.0-27.0); Calcium 8.6 mg/dL (8.7-10.3); Carbon Dioxide 24.3 mmol/L (21.6-31.8); Chloride 101 mmol/L (96-109); Glucose 113 mg/dL (70-110); Potassium 4.6 mmol/L (3.5-5.5); Sodium 137 mmol/L (135-145)
--- NOTE | 2024-02-17 08:59 | P.DS ---
Providers Date of admission: 02/11/24 10:18 Attending physician: Remigio Varela Consults: 02/11/24 09:39 Consult Physician Routine Consulting Provider: Mayur Yin Consult Reason/Comments: medical management s/p reverse right total shoulder arthroplasty Do you want consulting provider notified?: Yes 02/12/24 12:00 Consult Physician Routine Consulting Provider: Flaquito Plascencia Consult Reason/Comments: urinary retention s/p reverse right total shoulder arthroplasty Do you want consulting provider notified?: Yes Primary care physician: Remigio Varela - Discharge Diagnosis(es) (1) Rotator cuff impingement syndrome of right shoulder Current Visit: Yes Status: Acute (2) Hypertension Current Visit: Yes Status: Acute (3) Postoperative hypoxia Current Visit: Yes Status: Acute (4) GERD (gastroesophageal reflux disease) Current Visit: No Status: Acute (5) Pneumonia Current Visit: No Status: Acute Hospital Course: This is an 83-year-old male who was originally admitted for right rotator cuff arthroplasty and developed pneumonia postoperatively. Postoperatively patient developed some hypoxia and a left lower lobe infiltrate. He was on Rocephin and then Zosyn. So during admission patient developed some urinary retention, which has resided. Patient reports he is feeling much better and is ready to go home. He has been on 2 L via nasal cannula admission. Will need to check oxygen saturation on room air prior to discharge. He will be sent home with orthopedic instructions. Will send in Zithromax daily for 3 days to finish antibiotic course. Patient seen and evaluated by nurse practitioner, physician in agreement with plan Assessment: Right shoulder rotator cuff arthropathy Patient Condition at Discharge: Good Plan - Discharge Summary Discharge Rx Participant: Yes New Discharge Prescriptions: New Aspirin 325 mg PO DAILY #28 tab HYDROcodone/APAP 5-325MG [Wellington 5-325] 1 - 2 tab PO Q6HR PRN #32 tab PRN Reason: Pain Sennosides/Docusate Sodium [Senna Plus 8.6-50 mg Softgel] 1 each PO DAILY #20 capsule Azithromycin [Zithromax] 500 mg PO DAILY 1 Days #3 tab Continue PARoxetine [Paxil] 20 mg PO BID Metoprolol Succinate (ER) [Toprol XL] 100 mg PO BID hydrALAZINE HCL [Apresoline] 25 mg PO BID Omeprazole 20 mg PO QAM Tamsulosin [Flomax] 0.4 mg PO HS Cetirizine HCl [Zyrtec] 10 mg PO QAM flaxseed oiL [Flaxseed Oil] 1,000 mg PO DAILY Aspirin EC [Ecotrin Low Dose] 81 mg PO DAILY Discharge Medication List Metoprolol Succinate (ER) [Toprol XL] 100 mg PO BID 10/03/17 [History] Omeprazole 20 mg PO QAM 10/03/17 [History] PARoxetine [Paxil] 20 mg PO BID 10/03/17 [History] hydrALAZINE HCL [Apresoline] 25 mg PO BID 10/03/17 [History] Aspirin EC [Ecotrin Low Dose] 81 mg PO DAILY 11/04/21 [History] Cetirizine HCl [Zyrtec] 10 mg PO QAM 11/04/21 [History] Tamsulosin [Flomax] 0.4 mg PO HS 11/04/21 [History] flaxseed oiL [Flaxseed Oil] 1,000 mg PO DAILY 11/04/21 [History] Aspirin 325 mg PO DAILY #28 tab 02/13/24 [Rx] HYDROcodone/APAP 5-325MG [Wellington 5-325] 1 - 2 tab PO Q6HR PRN #32 tab 02/13/24 [Rx] Sennosides/Docusate Sodium [Senna Plus 8.6-50 mg Softgel] 1 each PO DAILY #20 capsule 02/13/24 [Rx] Azithromycin [Zithromax] 500 mg PO DAILY 1 Days #3 tab 02/17/24 [Rx] Follow up Appointment(s)/Referral(s): Devaughn Griffin PAC [PHYSICIAN CUSTOMER ACCOUNT SPECIALIST] - 02/27/24 10:10 am Remigio Varela MD [Primary Care Provider] - 1 Week Activity/Diet/Wound Care/Special Instructions: Orthopedic Discharge Instructions: 1. Wound care and infection precautions, keep incision dry and covered while showering, no lotions, creams, moisturizers. No soaking, pools, hot tubs. Do not scrub over incision. 2. Non-weight bearing right upper extremity 3. Ice when necessary. Do not exceed 20 minutes per hour with ice pack. 4. Maintain sling to right upper extremity until seen at first follow up appointment. 5. Pain meds and anticoagulants per prescription. 6. Pain medication has potential to cause constipation. Increase oral fluid and fiber intake. Contact primary care provider if you have not had a bowel movement within 48 hours after discharge. 7. No anti-inflammatory medication until discussed at first post operative visit, this including Motrin, Aleve, Mobic, Diclofenac. 8. Follow up in office at 2 weeks postop with Manuel Goldman PA-C / Devaughn Griffin PA-C 9. Follow up with your primary care doctor 7-10 days after discharge. 10. Contact [facility] with any questions, . keep incision clean, dry, intact. While showering, cover steri-strips with Saran wrap. Keep steri-strips on until follow-up appointment in 2 weeks Discharge Disposition: HOME SELF-CARE
[2024-02-17 09:06] VITALS: BP 178/83; RESP 18; TEMP 98.5
[2024-02-17 12:42] VITALS: PULSE 70
== END 2024-02-17 14:07 | disposition home or self-care (01) | DRG 483 ==
LOC: OR 05:45 → 4SSUR 09:38 → OR 10:18 → 4SSUR 10:18
PROVIDERS: ADMIT Family Medicine; ATTEND Family Medicine
PROC: 0RRJ00Z Replacement of Right Shoulder Joint with Reverse Ball and Socket Synthetic Substitute, Open Approach (ICD-10-PCS; principal; 2024-02-11 07:30)
DX: M75.41 Impingement syndrome of right shoulder (principal); J18.9 Pneumonia, unspecified organism; J96.01 Acute respiratory failure with hypoxia; M19.011 Primary osteoarthritis, right shoulder; R33.8 Other retention of urine; N40.1 Benign prostatic hyperplasia with lower urinary tract symptoms; K21.9 Gastro-esophageal reflux disease without esophagitis; I10 Essential (primary) hypertension; F41.9 Anxiety disorder, unspecified; G47.30 Sleep apnea, unspecified; E07.9 Disorder of thyroid, unspecified; M10.9 Gout, unspecified; Z96.653 Presence of artificial knee joint, bilateral; Z89.022 Acquired absence of left finger(s); Z87.891 Personal history of nicotine dependence; Z79.899 Other long term (current) drug therapy; Z79.82 Long term (current) use of aspirin
CPT/HCPCS: 64415; 71045; 71046; 80048; 80053; 85025; 85027; 94640; 94760

== ENCOUNTER → 2024-04-13 | Outpatient (CLI) | payer MEDICARE, BC ==
--- NOTE | 2024-04-13 12:16 | XR ---
EXAMINATION TYPE: XR lumbar spine 2 or 3V DATE OF EXAM: 04/13/2024 CLINICAL HISTORY: pain TECHNIQUE: Three views of the lumbar spine are submitted. COMPARISON: None. FINDINGS: There are 5 lumbar type vertebral bodies identified. No acute fracture or dislocation. Grade 1 margaret listhesis of L4-L5 with mild retrolisthesis of L3 on L4. Bilateral neuroforaminal stenosis suggested at L3-L4, L4-L5, and L5-S1. Vertebral body heights are within normal limits. Advanced multilevel de generative disc disease and facet arthropathy demonstrated with disc space narrowing, endplate sclero sis, and osteophytosis. The overlying soft tissue appears unremarkable. Atherosclerotic calcificatio n of the aorta. IMPRESSION: 1. No acute fracture or dislocation is seen in the lumbar spine. 2. Moderate multilevel degenerative disc disease and facet arthropathy. 3. Grade 1 anterolisthesis of L4 on L5 with mild retrolisthesis of L3 on L4.
== END | disposition home or self-care (01) ==
LOC: RADXRMAIN 11:30
PROVIDERS: ATTEND Family Medicine
DX: M47.816 Spondylosis without myelopathy or radiculopathy, lumbar region (principal); M43.16 Spondylolisthesis, lumbar region; M51.36 Other intervertebral disc degeneration, lumbar region
CPT/HCPCS: 72100

== ENCOUNTER → 2024-06-20 | Outpatient (CLI) | payer MEDICARE, BC ==
--- NOTE | 2024-07-14 15:36 | MR ---
Site ID synapse default Patient Martin Cornejo L ID [id number] Age/Gender: 84Y, M Order # N/A Procedure MRI LSPINE W/O CONTRAST Date 06/20/2024 11:56:11 AM EXAMINATION TYPE: MR lumbar spine wo con DATE OF EXAM: 06/26/2024 COMPARISON: Lumbar spine radiographs 05/25/2024, 04/13/2024 HISTORY: Left leg pain TECHNIQUE: Multiplanar, multisequence images of the lumbar spine were acquired without IV contrast. FINDINGS: The lumbar vertebral bodies do have preserved heights. Multilevel anterior osteophytosis o f the lumbar spine. Mild retrolisthesis of L1 on L2, L2 on L3, L3-L4. Grade 1 anterolisthesis of L4 o n L5 and L5 on S1. No definitive pars defect. Multilevel type II Modic changes most pronounced at L1- L4. Multilevel disc desiccation is present. The conus medullaris and the distal spinal cord do appea r unremarkable with regards to their signal intensity and morphology. T12-L1: No significant disc pathology. No significant spinal canal or neural foraminal stenosis. L1-L2: Mild retrolisthesis with broad-based disc bulge. No significant central canal stenosis. Bilat eral facet arthropathy resulting in mild bilateral neural foraminal stenosis. L2-L3: Mild retrolisthesis without significant central canal stenosis. Bilateral facet arthropathy w ith moderate bilateral neural foraminal stenosis. L3-L4: Mild retrolisthesis. No significant neural foraminal stenosis. Ligamentum flavum buckling and facet arthropathy contribute to moderate bilateral neuroforaminal stenosis. L4-L5: Grade 1 anterolisthesis with uncovering of the disc. Small central caudal disc extrusion exten ding approximately 5 mm along the posterior aspect of the L5 vertebral body. Ligamentum flavum buckli ng of facet arthropathy contributes to mild central canal stenosis. Mild left and moderate right neur al foraminal stenosis. L5-S1: Grade 1 anterolisthesis with uncovering of the disc. Central cranial disc extrusion approximat ava 5 mm along the posterior aspect of the L5 vertebral body. No significant central canal stenosis. Ligamentum flavum buckling and bilateral facet arthropathy demonstrated. Moderate bilateral neurofora cyrus stenosis with left greater than right. Other significant findings: None. IMPRESSION: 1. Moderate multilevel degenerative disc disease and osteoarthritic change as described above. Small disc extrusions at L4-L5 and L5-S1. Mild spinal canal stenosis at L4-L5 secondary to primarily ligam entum flavum buckling and facet arthropathy. Varying degrees of neural foraminal stenosis as describe d above. 2. Grade 1 anterolisthesis of L4-L5 and L5-S1. Mild retrolisthesis of L1 on L2, L2 and L3, and L3 on L4.
== END | disposition home or self-care (01) ==
LOC: RADMRIMAIN 12:32
PROVIDERS: ATTEND Orthopaedic Surgery
DX: M51.16 Intervertebral disc disorders with radiculopathy, lumbar region (principal); M48.061 Spinal stenosis, lumbar region without neurogenic claudication; M43.17 Spondylolisthesis, lumbosacral region; M19.90 Unspecified osteoarthritis, unspecified site; M47.27 Other spondylosis with radiculopathy, lumbosacral region
CPT/HCPCS: 72148

== ENCOUNTER → 2024-08-24 | Outpatient (CLI) | payer MEDICARE, BC ==
[2024-08-24 10:24] LABS: African American GFR (CKD) 72 (>60 ml/min/1.73 sqM); Blood Urea Nitrogen 18 mg/dL (9-20); Non-African American GFR(CKD) 63 (>60 ml/min/1.73 sqM)
--- NOTE | 2024-08-24 13:50 | XR ---
EXAMINATION TYPE: XR chest 2V DATE OF EXAM: 08/24/2024 1:40 PM COMPARISON: Chest radiographs from 02/17/2024 TECHNIQUE: XR chest 2V Frontal and lateral views of the chest. CLINICAL INDICATION:Male, 84 years old with history of C61 prostate ca; FINDINGS: Lungs/Pleura: There is no evidence of pleural effusion, focal consolidation, or pneumothorax. Chroni c elevation the right hemidiaphragm with eventration. Pulmonary vascularity: Unremarkable. Heart/mediastinum: Cardiomediastinal silhouette is unremarkable. Musculoskeletal: No acute osseous pathology. Right shoulder arthroplasty changes redemonstrated. IMPRESSION: No acute cardiopulmonary disease/process. [facility], , 08/24/2024 1:48 PM
--- NOTE | 2024-08-24 14:14 | CT ---
EXAMINATION TYPE: CT urogram wo/w con CT DLP: 3021.10 mGycm, Automated exposure control for dose reduction was used. DATE OF EXAM: 08/24/2024 11:37 AM COMPARISON: None CLINICAL INDICATION:Male, 84 years old with history of C61 MALIGNANT NEOPLASM OF PROSTATE; PHH, Flakita jenningst neoplasm of prostate TECHNIQUE: Urogram of the abdomen and pelvis was performed before and after the administration of 100 cc of IV c ontrast Isovue 370 contrast. Delayed imaging was performed. Coronal and sagittal reformats were perfo rmed. One or more CT dose reduction strategies were utilized during this examination. 2D and 3D recon structions are performed to assist visualization of the urinary tract on a separate workstation. FINDINGS: GENITOURINARY: RIGHT KIDNEY AND URETER: Nonobstructive lower pole 3 mm calculus. No hydronephrosis or hydroureter. N o renal mass or other lesions. No urothelial lesions: no filling defect, dilation, stricture or wall thickening. LEFT KIDNEY AND URETER: Nonobstructive left mid kidney 4 mm calculus. No hydronephrosis or hydrourete r. Diffuse mild cortical thinning identified. No renal mass or other lesions. No urothelial lesions: no filling defect, dilation, stricture or wall thickening. URINARY BLADDER: Moderately well distended. Normal, no calculi, mass or other lesions. REPRODUCTIVE: Enlarged prostate gland measuring 5.3 cm in transverse dimension. Central coarse calcif ications. This indents upon the urinary bladder base. Symmetric prominent appearance of both seminal vesicles. ABDOMEN LIVER: Left hepatic lobe 1.1 cm cyst. GALLBLADDER AND BILE DUCTS: Unremarkable PANCREAS: Unremarkable. SPLEEN: Unremarkable. ADRENAL GLANDS: Unremarkable. STOMACH AND BOWEL: Tiny hiatal hernia. No focal bowel wall thickening or surrounding inflammatory merly nges. No evidence of bowel obstruction. PERITONEUM: No evidence of pneumoperitoneum, free fluid, or adenopathy. VASCULATURE: No aortic aneurysm. Mild atherosclerotic calcification of the aorta and its branches. MUSCULOSKELETAL: No acute osseous abnormalities. No aggressive osseous lesion. Mild retrolisthesis of L1 on L2, L2 on L3 and L3 on L4. Grade 1 anterolisthesis of L4 on L5. No pars defects. Multilevel de generative disc disease. SOFT TISSUE/ABDOMINAL WALL: Unremarkable. LOWER CHEST: Right lower lung subpleural subsegmental atelectasis. Coronary artery calcifications. IMPRESSION: 1. No evidence of renal/urothelial neoplasm. Nonobstructive bilateral renal calculi. 2. Enlarged prostate gland without evidence of metastatic disease within the abdomen and pelvis. No l ymphadenopathy. [facility], , 08/24/2024 2:12 PM
== END | disposition home or self-care (01) ==
LOC: RADCTMAIN 09:47
PROVIDERS: ATTEND Urology
CPT/HCPCS: 36415; 71046; 74178; 74400; 82565; 84520

== ENCOUNTER → 2024-10-07 | Outpatient (CLI) | payer MEDICARE, BC ==
--- NOTE | 2024-10-07 14:47 | NM ---
EXAMINATION TYPE: NM bone scan whole body DATE OF EXAM: 10/07/2024 COMPARISON: NONE HISTORY: Prostate cancer Delayed whole-body scanning was performed following the injection of 17.9 mCi Tc 99m MDP. Images wer e acquired 3 hours post injection. FINDINGS: No suspicious uptake to suggest metastatic disease. There is some focal uptake within the first metatarsophalangeal joint space of the left foot likely d egenerative in nature. Degenerative changes are likely within the visualized portion of the left hand at the wrist distal hand. Some uptake within the right foot first digit and ankle likely degenerativ e in nature. IMPRESSION: 1. No suspicious uptake to suggest metastatic disease. 2. There are some degenerative joint changes noted; left hand left foot and right ankle predominantly . [facility], Workstation: [email or web address], 10/07/2024 2:44 PM
== END | disposition home or self-care (01) ==
LOC: RADNMMAIN 10:33
PROVIDERS: ATTEND Urology
DX: C61 Malignant neoplasm of prostate (principal); M19.042 Primary osteoarthritis, left hand; M19.072 Primary osteoarthritis, left ankle and foot
CPT/HCPCS: 78306; A9503